=== PATIENT | male | born 1945 | race Caucasian/White ===

== ENCOUNTER 2024-09-30 10:51 | Inpatient (IN) ==
--- NOTE | 2024-09-30 11:45 | XRAY Report ---
PROCEDURE: XR Chest 1V INDICATIONS: sob TECHNIQUE: One view of the chest was acquired. COMPARISON: None. FINDINGS: Surgical changes and devices: None. Lungs and pleura: No pleural effusions or pneumothorax. No consolidation. Mediastinum: Mediastinal contours appear normal. Heart size is enlarged. Bones and chest wall: No suspicious bony lesions. Overlying soft tissues appear unremarkable. IMPRESSION: No acute pulmonary process. Reviewed by: Lorena Diaz MD on 09/30/2024 11:44 AM PDT Approved by: Lorena Diaz MD on 09/30/2024 11:44 AM PDT Station ID: [id number]
[2024-09-30 11:49] LABS: ALT ALANINE AMINOTRANSFERASE 42.0 IU/L (10-60); AST ASPARTATE AMINOTRANSFERASE 40.0 IU/L (10-42); BUN - BLOOD UREA NITROGEN 30.0 mg/dL (6-20); CARBON DIOXIDE - CO2 30.0 mmol/L (21-32); CREATININE 1.4 mg/dL (0.6-1.3); GFR - MDRD 49.0 (>89)
--- NOTE | 2024-09-30 12:33 | ED Physician Documentation ---
History of Present Illness Stated complaint Stated Complaint: SOA Chief complaint Chief Complaint: Resp History obtained from History obtained from: Patient History of Present Illness Timing: Prior to arrival Additonal information Additional information: Patient is a 79-year-old male presenting to the emergency department with increased shortness of breath going on for about 3 days now. Patient notes initially shortness of breath started while he was at rest but has progressively worsened. Patient has a past medical history remarkable for bilateral leg swel ling and recent wounds. He notes he was seen about a week ago by his primary care doctor after falling on his boat and believes he got multiple wounds from his fall on the boat causing significant swelling redness and warmth to bilateral lower legs. He was being treated with Lasix 80 mg and dicloxacillin and Keflex for bilateral leg wounds. He notes swelling in his legs has not improved he continues to have redness and drainage from bilateral wounds he has been unable to get into wound care and continues to have weeping from the wounds he denies any fevers or chills no chest pain associated with his symptoms he has orthopnea x 3 at home and difficulty breathing when laying flat. He had an echo about 3 weeks ago and chest x-ray showing small pleural effusions about 3 weeks ago as well. He notes this was when he was started and increased to Lasix 80 and his lisinopril was recently changed in the outpatietn setting. Meds/Allgy Home Medications Ambulatory Orders Medication Instructions Recorded Confirmed cholecalciferol (vitamin D3) 50 2,000 unit PO DAILY 09/30/24 mcg (2,000 unit) tablet (D3 DOTS) colchicine 0.6 mg capsule See Rx Instructions .Route . COMPLEX 09/30/24 09/30/24 dicloxacillin 500 mg capsule 500 mg PO QID 09/30/24 furosemide 40 mg tablet 40 mg PO DAILY 09/30/2409/12 hydrocodone 5 mg-acetaminophen 325 1 tab PO Q6H PRN pa in 09/30/24 09/30/24 mg tablet losartan 50 mg tablet 50 mg PO DAILY 09/30/2409/12 multivitamin (Daily Multi-Vitamin 1 tab PO DAILY 09/3009/30/24 tablet) potassium chloride 20 mEq 20 meq PO DAILY 09/30/24 tablet,extended release prednisone 50 mg tablet 50 mg PO DAILY 09/30/2409/12 sildenafil 100 mg tablet (Viagra) 100 mg PO DAILY PRN sexual activity 09/30/24 09/30/24 tizanidine 4 mg tablet 4 mg PO Q8H 09/30/24 5 Allergies Allergies Allergy/AdvReac Type Severity Reaction Status Date / Time Sulfa (Sulfonamide Allergy Mild Rash Verified 09/30/24 11:02 Antibiotics) PFSH Active Problems All Active Problems (Updated 09/30/24 @ 15:48 by Anusha Solorzano PA-C) History of acute heart failure (Acute) Cough (Acute) Weakness (Acute) Shortness of breath (Acute) Acute respiratory failure with hypoxia (Acute) Medical History Medical History (Updated 09/30/24 @ 15:48 by Anusha Solorzano PA-C) History of malaria History of osteoarthritis History of torn meniscus of knee History of atrial fibrillation Surgical History Surgical History (Updated 09/30/24 @ 11:05 by Sylvain Jones RN, BSN) History of blepharoplasty Social History Social History (Updated 09/30/24 @ 11:05 by Sylvain Jones RN, BSN) Smoking Status: Smoker current status unk If you are a former smoker, when did you quit? (Date/Year): 02/12/2001 Do you dip or chew tobacco?: No Do you vape?: No Living arrangement: At home Marital Status: Living Condition: Alone Physical Activity: Chairfast Level: Assisted Do you feel safe in your home environment?: Yes History of physical, verbal, emotional, or financial abuse?: No Frequency: Occasional Substance Use: denies use Exam Exam Vital Signs: Vital Signs x48h Temp Pulse Resp BP Pulse Ox O2 Flow Rate 09/30/24 12:57 117 H 28 H 150/69 H 96 3 09/30/24 10:54 36.6 C 127 H 18 137/54 H 98 3 Constitutional normal general appearance HENMT normocephalic Eyes PERRL, EOMs intact bilaterally and conjunctivae normal Neck/C-Spine visual inspection normal Respiratory breath sounds equal bilaterally, normal respiratory effort and clear to auscultation bilaterally Cardiovascular tachycardic, irrecgular on arrival. Gastrointestinal abdomen normal to inspection Old bruising noted to right upper quadrant. Extremities Significant swelling and redness noted to bilateral lower legs with weeping from wounds to both legs left greater than right. They are warm to touch with significant pain and edema extending above the knee. No signs of anasarca but he has diffuse swelling throughout lower legs. He has passive range of motion intact and significant tenderness to bilateral legs. Results Vitals Vitals: Oxygen O2 Source Nasal cannula Labs Labs: Microbiology 09/30/24 12:40 Wound Culture - Preliminary Leg - Left Pseudomonas Aeruginosa Laboratory Tests 09/30/24 09/30/24 09/30/24 11:28 11:30 12:44 WBC 10.7 RBC 4.15 L Hgb 13.8 L Hct 42.7 MCV 102.9 H MCH 33.3 H MCHC 32.3 RDW 13.0 Plt Count 149 MPV 10.1 Neut # (Auto) Not Reportable Lymph # (Auto) Not Reportable Door # (Auto) Not Reportable Eos # (Auto) Not Reportable Baso # (Auto) Not Reportable Absolute Nucleated RBC Not Reportable Total Counted 100 Band Neuts % (Manual) 25 H Reactive Lymphs % (Man) 1 Abnorm Lymph % (Manual) 0 Nucleated RBC % Not Reportable Neutrophils # (Manual) 10.3 H Lymphocytes # (Manual) 0.1 L Monocytes # (Manual) 0.3 Eosinophils # (Manual) 0.0 Basophils # (Manual) 0.0 Differential Comment MANUAL DIFFERENTIAL Platelet Estimate NORMAL (130-450,000) RBC Morph Micro Appear 2+ ANISOCYTOSIS Sodium 134 L Potassium 3.7 Chloride 97 L Carbon Dioxide 30 Anion Gap 7.0 BUN 30 H Creatinine 1.4 H Estimated GFR (MDRD) 49 L Glucose 177 H Lactic Acid 2.1 Calcium 8.9 Magnesium 1.7 Total Bilirubin 0.9 AST 40 ALT 42 Alkaline Phosphatase 100 B-Natriuretic Peptide 105 H Total Protein 5.9 L Albumin 3.2 Globulin 2.7 Albumin/Globulin Ratio 1.2 PD Medical Decision Making ED course Complexity details: reviewed old records and reviewed results ED course: Patient is a 79-year-old with shortness of breath presenting to the ED with increased leg swelling and increased shortness of breath despite taking Lasix for about 3 weeks 80 mg. He has increased swelling and wounds to his legs he is on dicloxacillin as well as Keflex with no relief in his outpatient send he has been unable to get into wound care recently. He has increased shortness of breath but no chest pain associated with his symptoms symptoms seem to worsen with laying flat he denies any dizziness or lightheadedness associate with his symptoms vitals here in the ED show patient is hypoxic on arrival and started on 3 L nasal cannula patient remains on nasal cannula oxygen while here in the ED. labs show no significant leukocytosis but he does have an HYUN as his baseline is closer to GFR of 60-70. I have concerns for acute dehydration as the chest x- ray is not showing any signs of fluid overload and his BNP is at 105 suspect his symptoms could be secondary to dehydration given recent Lasix versus possible PE as he remains persistently tacky to the 120s to 130s here in the ED. CXR: No acute pulmonary process. CT/PE: No central pulmonary embolus. Patient will be admitted for concerns for bilateral wound infections of the lower legs as well as requiring persistent 3 L nasal cannula which is new for patient. Discussed with Dr. Sorensen who is agreeable with this plan at this time. Patient understands and is agreeable with this plan. Discharge Plan Discharge Patient Disposition: [facility] DC/Xfer Condition: Good Clinical Impression: Shortness of breath, Weakness, Cough, History of acute heart failure Interventions: ED Admission Assessment Last Done: 09/30/24 16:49 Vitals documented within 30 minutes of discharge?: Yes
[2024-09-30 12:49] LABS: HCT - HEMATOCRIT 42.7 % (42.0-52.0); HGB - HEMOGLOBIN 13.8 g/dL (14.0-18.0); MEAN PLATELET VOLUME 10.1 fL (7.4-11.4); PLT - PLATELET COUNT 149 10^3/uL (130-450); RED CELL DISTRIBUTION WIDTH 13.0 % (12.0-15.0)
[2024-09-30 12:57] LABS: ABNORMAL LYMPHS % (MANUAL) 0 %; BASOPHILS # (MANUAL) 0.0 10^3/uL (0-0.1); EOSINOPHILS # (MANUAL) 0.0 10^3/uL (0-0.7); LYMPHOCYTES % (MANUAL) 0 %
[2024-09-30 13:43] LABS: BAND NEUTROPHILS % (MANUAL) 25 %; LYMPHOCYTES # (MANUAL) 0.1 10^3/uL (1.5-3.5); MONOCYTES # (MANUAL) 0.3 10^3/uL (0.0-1.0); NEUTROPHILS # (MANUAL) 10.3 10^3/uL (1.5-6.6); REACTIVE LYMPHS % (MANUAL) 1 %
[2024-09-30 13:44] LABS: PLATELET ESTIMATE, MANUAL NORMAL (130-450,000) (NORMAL); RBC MORPHOLOGY (MULTIPLE) 2+ ANISOCYTOSIS (NORMAL)
--- NOTE | 2024-09-30 15:03 | CT Report ---
PROCEDURE: CT Angio Chest INDICATIONS: concern for PE, tachycardic CONTRAST: OMNI 300 80ML TECHNIQUE: After the administration of intravenous contrast, 2 mm axial images were acquired from the pulmonary apices to the posterior costophrenic angles during the arterial phase. In addition, 1 mm lung kernel and 5 mm soft tissue kernel reconstructions were performed. 3-dimensional coronal oblique maximum intensity projection (MIP) reformats, 8 mm axial MIP, and 5 mm coronal and sagittal MPR reformats were then performed through the thorax. For radiation dose reduction, the following was used: automated exposure control, adjustment of mA and/or kV according to patient size. COMPARISON: None. FINDINGS: Image quality: Opacification is suboptimal for evaluation of vessels distal to the main pulmonary arteries. Large vessels: No filling defects within the opacified pulmonary arteries, accounting for motion and contrast timing. No evidence of acute aortic syndrome or aortic aneurysm. Lungs and pleura: No consolidation. No pleural effusions. No pneumothorax. No suspicious pulmonary nodules which require follow up. Mediastinum: Heart size is enlarged.. No pericardial effusion. No large vessel abnormality. No mediastinal adenopathy by size criteria. 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 Chest wall and lower neck: Thyroid is unremarkable. No axillary or supraclavicular adenopathy by size. Bones: No aggressive osseous abnormality. Upper Abdomen: Unremarkable. IMPRESSION: No central pulmonary embolus. Reviewed by: Lorena Diaz MD on 09/30/2024 3:01 PM PDT Approved by: Lorena Diaz MD on 09/30/2024 3:01 PM PDT Station ID: [id number]
[2024-09-30] MEDS: SODIUM CHLORIDE 0.9% 1,000 ML IV STA (15:30)
[2024-09-30] MEDS: MORPHINE 2 MG/ML CARPUJECT IVP STA (15:47)
[2024-09-30] MEDS: HYDROcod/ACETAM 5/325 MG TABLET PO STA (15:55)
[2024-09-30 16:39] LABS: GLUCOSE, URINE (UA) NEGATIVE (NEGATIVE); KETONES,URINE (UA) NEGATIVE (NEGATIVE); OCCULT BLOOD,URINE TRACE (NEGATIVE); SQUAMOUS EPITHELIAL CELL,UR MANY Squamous (<= Few)
[2024-09-30] MEDS ORDERED: ONDANSETRON ODT 4 MG TABLET TL PRN (16:53)
[2024-09-30] MEDS ORDERED: ONDANSETRON 4 MG/2 ML VIAL IVP PRN (16:53)
[2024-09-30] MEDS: ACETAMINOPHEN 325 MG TABLET PO PRN (17:10)
[2024-09-30] MEDS: oxyCODONE 5 MG TABLET PO PRN (17:10)
--- NOTE | 2024-09-30 17:33 | PHARMACY PROGRESS NOTE ---
Best Possible Medication History Admit Date and Time: 09/30/24 1547 Home Medications Medication Instructions Recorded Confirmed Type cholecalciferol (vitamin D3) 50 2,000 unit PO DAILY 09/30/24 History mcg (2,000 unit) tablet (D3 DOTS) colchicine 0.6 mg capsule See Rx Instructions .Route . COMPLEX 09/30/24 09/30/24 History dicloxacillin 500 mg capsule 500 mg PO QID 09/30/24 History furosemide 40 mg tablet 40 mg PO DAILY 09/30/2409/12 History hydrocodone 5 mg-acetaminophen 325 1 tab PO Q6H PRN pa in 09/30/24 09/30/24 History mg tablet losartan 50 mg tablet 50 mg PO DAILY 09/30/2409/12 History multivitamin (Daily Multi-Vitamin 1 tab PO DAILY 09/3009/30/24 History tablet) potassium chloride 20 mEq 20 meq PO DAILY 09/30/24 History tablet,extended release prednisone 50 mg tablet 50 mg PO DAILY 09/30/2409/12 History sildenafil 100 mg tablet (Viagra) 100 mg PO DAILY PRN sexual activity 09/30/24 09/30/24 History tizanidine 4 mg tablet 4 mg PO Q8H 09/30/24 5 History Processed by: Pharmacy Medications reviewed in ED?: Yes Medication History completed: Yes Patient Interview: Completed Secondary Source(s): Prescription bottles, Other family member and Insurance records [facility] Statement: As the person ultimately responsible for medication therapy, providers are able to order a medication from an existing home medication list in [facility] via the "Reconcile Routine" prior to Confirmation of that medication by it desktop support technician. Such practice is discouraged except when the physician, in their clinical judgment, deems that a medical need exists for a medication without regard to previous use.
[2024-09-30] MEDS: SODIUM CHLORIDE 0.9% 1,000 ML IV SCH (17:54)
[2024-09-30] MEDS: SODIUM CHLORIDE FLUSH 0.9% 10 ML SYRINGE IVP SCH (17:56)
[2024-09-30] MEDS: DICLOFENAC SODIUM 1% GEL 50 GM TUBE TOP PRN (22:57)
[2024-10-01 05:47] LABS: HCT - HEMATOCRIT 39.7 % (42.0-52.0); HGB - HEMOGLOBIN 13.2 g/dL (14.0-18.0); MEAN PLATELET VOLUME 10.4 fL (7.4-11.4); PLT - PLATELET COUNT 136 10^3/uL (130-450); RED CELL DISTRIBUTION WIDTH 13.2 % (12.0-15.0)
[2024-10-01 06:02] LABS: ABNORMAL LYMPHS % (MANUAL) 0 %; BASOPHILS # (MANUAL) 0.0 10^3/uL (0-0.1); EOSINOPHILS # (MANUAL) 0.0 10^3/uL (0-0.7)
[2024-10-01 06:03] LABS: BUN - BLOOD UREA NITROGEN 35.0 mg/dL (6-20); CARBON DIOXIDE - CO2 28.0 mmol/L (21-32); CREATININE 1.8 mg/dL (0.6-1.3); GFR - MDRD 37.0 (>89)
[2024-10-01 06:27] LABS: BAND NEUTROPHILS % (MANUAL) 25 %; LYMPHOCYTES # (MANUAL) 1.1 10^3/uL (1.5-3.5); LYMPHOCYTES % (MANUAL) 6 %; MONOCYTES # (MANUAL) 0.1 10^3/uL (0.0-1.0); NEUTROPHILS # (MANUAL) 12.8 10^3/uL (1.5-6.6); PLATELET ESTIMATE, MANUAL NORMAL (130-450,000) (NORMAL); PLATELET MORPHOLOGY NORMAL APPEARANCE (NORMAL); RBC MORPHOLOGY (MULTIPLE) NORMAL APPEARANCE (NORMAL); REACTIVE LYMPHS % (MANUAL) 2 %
[2024-10-01] MEDS: ENOXAPARIN 40 MG/0.4 ML SYRINGE SUBQ SCH (09:20)
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
--- NOTE | 2024-10-01 21:30 | PROVIDER PROGRESS NOTE ---
Subjective Prog Note Date Prog Note Date: 10/01/24 Prog Note Time: 21:21 Subjective Pt reports feeling: Improved Subjective: He states that his panic was so severe last night. He received 1 dose of Ativan from [employer]. Hydroxyzine. And that helped quite a bit. He would like me to order those. Initially he asked for Ativan and says that he takes it at home. But when I queried that statement due to lack of verification and the prescription monitoring program, he tells me that he took it years and years ago. He does not have it at home. But he knows that it worked in the past. His legs are still on fire. Pain is a 7 out of a 10. Sometimes an 8 out of a 10. I had thought that I had ordered his Ancef last night and I did not. So I need to order it this morning. He required oxygen once he got to MedSurg last night. Needed until about 530. Between 5:30 PM and this morning, he is on room air. His respiratory rate peaked at 30 when he got to MedSurg. This morning he was 22-24. This afternoon 26. He has remained afebrile. Daughter is at the bedside today. She has been very helpful and being very supportive of her father. Current Medications Current Medications Current Medications: Current Medications Generic Name Dose Route Start Last Admin Trade Name Freq PRN Reason Stop Dose Admin Acetaminophen 650 mg 09/30/24 16:53 10/01/24 21:15 Acetaminophen 325 Mg Tablet PO 650 mg Q4HR PRN Administration Pain 1 to 4, or Fever Cefazolin Sodium 2 gm 10/01/24 15:00 10/01/24 15:54 Cefazolin 2 Gm Vial IVP 2 gm Q8H TOMAS Administration Diclofenac Sodium 2 gm 09/30/24 22:09 09/30/24 22:57 Diclofenac Sodium 1% Gel 50 Gm Tube TOP 2 gm QID PRN Administration Mild Pain (Level 1-3) Enoxaparin Sodium 40 mg 10/01/24 09:00 10/01/24 09:20 Enoxaparin 40 Mg/0.4 Ml Syringe SUBQ 40 mg DAILY TOMAS Administration Hydroxyzine Pamoate 25 mg 09/30/24 22:13 10/01/24 21:15 Hydroxyzine Pamoate 25 Mg Capsule PO 25 mg QPM PRN Administration Insomnia Hydroxyzine Pamoate 25 mg 10/01/24 10:36 10/01/24 14:09 Hydroxyzine Pamoate 25 Mg Capsule PO 25 mg TID PRN Administration Anxiety Sodium Chloride 1,000 mls @ 100 mls/hr 09/30/24 16:53 10/01/24 14:03 Normal Saline 0.9% IV 100 mls/hr .Q10H TOMAS Administration Lorazepam 0.5 mg 10/01/24 10:36 Lorazepam 2 Mg/Ml Vial IVP TID PRN Anxiety Ondansetron HCl 4 mg 09/30/24 16:53 Ondansetron Odt 4 Mg Tablet TL Q6HR PRN Nausea / Vomiting Ondansetron HCl 4 mg 09/30/24 16:53 Ondansetron 4 Mg/2 Ml Vial IVP Q6HR PRN Nausea / Vomiting Oxycodone HCl 5 mg 09/30/24 16:53 10/01/24 21:15 Oxycodone 5 Mg Tablet PO 5 mg Q4HR PRN Administration Pain 5 to 7 Sodium Chloride 10 ml 09/30/24 16:53 Sodium Chloride Flush 0.9% 10 Ml Syringe IVP PRN PRN NEEDED PER PROVIDER ORDERS Sodium Chloride 10 ml 09/30/24 17:00 10/01/24 15:55 Sodium Chloride Flush 0.9% 10 Ml Syringe IVP 10 ml 0100,0900,1700 TOMAS Administration Objective Vital Signs/Intake & Output Reviewed Vital Signs: Yes Vital Signs: Vital Signs x48h Temp Pulse Resp BP Pulse Ox 10/01/24 15:43 36.5 C 86 22 147/91 H 95 Intake & Output: Intake & Output 09/28/24 09/29/24 09/30/24 10/01/24 23:59 23:59 23:59 23:59 Intake Total 1520 / 1520 3070 / 3070 Output Total 200 / 200 375 / 375 Balance 1320 / 1320 2695 / 2695 Weight (kg) 137 kg Objective General Appearance: positive Alert and Mild distress (From his bilateral leg pain. His panic is much better today so his shortness of breath is improved.) ENT: positive No signs of dehydration Neck: positive Other (Neck is too obese to assess for JVD); negative Stiff neck Respiratory: positive Chest non-tender and No respiratory distress; negative Breath sounds nml (Diffusely diminished but no tachypnea, no crackles or rhonchi. Barrel chest.) Cardiovascular: positive Regular rate & rhythm (Stretches of regular rate and rhythm alternated with irregularly irregular. Telemetry has sinus on some beats, and multiple, multiple ectopic beats.) and Irregularly irregular Abdomen: positive Non-tender, Nml bowel sounds and Other (Unable to assess for organomegaly due to the large obese pannus) Skin: positive Other (The redness of his legs is still as intense as last night. Same cracked skin, same clear serous oozing) Extremities: positive Other (Severe lymphedema but you can see you with the legs are starting to shrink. Both he and his family feel that they have improved in their edema but they are still quite angry looking with the redness, tenseness, cracked skin and oozing.) Neurologic/Psychiatric: positive Oriented x3, CN's nml (2-12), Motor nml and Mood/affect nml Lab Results 10/01/24 05:12 10/01/24 05:12 Other Labs: Lab Results x24hrs 10/01/24 Range/Units 05:12 WBC 14.1 H (4.8-10.8) x10^3/uL RBC 3.85 L (4.70-6.10) 10^6/uL Hgb 13.2 L (14.0-18.0) g/dL Hct 39.7 L (42.0-52.0) % MCV 103.1 H (80.0-94.0) fL MCH 34.3 H (27.0-31.0) pg MCHC 33.2 (32.0-36.0) g/dL RDW 13.2 (12.0-15.0) % Plt Count 136 (130-450) 10^3/uL MPV 10.4 (7.4-11.4) fL Neut # (Auto) Not Reportable Lymph # (Auto) Not Reportable Webb # (Auto) Not Reportable Eos # (Auto) Not Reportable Baso # (Auto) Not Reportable Absolute Nucleated RBC Not Reportable Total Counted 100 Band Neuts % (Manual) 25 H (0 - 10) % Reactive Lymphs % (Man) 2 % Abnorm Lymph % (Manual) 0 % Nucleated RBC % Not Reportable Neutrophils # (Manual) 12.8 H (1.5-6.6) 10^3/uL Lymphocytes # (Manual) 1.1 L (1.5-3.5) 10^3/uL Monocytes # (Manual) 0.1 (0.0-1.0) 10^3/uL Eosinophils # (Manual) 0.0 (0-0.7) 10^3/uL Basophils # (Manual) 0.0 (0-0.1) 10^3/uL Differential Comment MANUAL DIFFERENTIAL Platelet Estimate NORMAL (130-450,000) (NORMAL) Platelet Morphology NORMAL APPEARANCE (NORMAL) RBC Morph Micro Appear NORMAL APPEARANCE (NORMAL) Sodium 134 L (135-145) mmol/L Potassium 4.4 (3.5-4.5) mmol/L Chloride 98 L (101-111) mmol/L Carbon Dioxide 28 (21-32) mmol/L Anion Gap 8.0 (6-13) BUN 35 H (6-20) mg/dL Creatinine 1.8 H (0.6-1.3) mg/dL Estimated GFR (MDRD) 37 L (>89) Glucose 116 H (74-104) mg/dL Calcium 8.3 L (8.5-10.3) mg/dL B-Natriuretic Peptide 258 H (5-100) pg/mL ABX Reporting Has patient been on IV antibiotics over the past 48 hours?: No Assessment/Plan Problem List (1) Acute respiratory failure with hypoxia: Impression: Resolved. He has been on room air and much more comfortable. Still has episodes of tachypnea and feeling like he is suffocating. Those episodes are improved with the Vistaril and sparing use of opioids. Even though he asked for Ativan he has not requested it today after I will order it. 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 Echo ordered for tomorrow since tech is not here today. And I need to track down the echo that was done 3 weeks ago. Because of his leg infection I am changing him from observation status to inpatient status (2) Cellulitis and abscess of leg: Impression: Due to lymphedema that has cracked and disrupted his skin. I Started him on Ancef. However culture of the leg from yesterday is now growing Pseudomonas. I am awaiting sensitivities. White cell count has come up to 14 from 10 yesterday. Although his legs have improved in itheir girth and edema, it still red, hot, tense, If sensitives do not appear by tomorrow, I am changing him to gram-negative coverage. I will also venous Doppler to assess soft tissue or for DVT. I will ask the wound clinic staff if they have any time in their schedule to see this christie man. (3) Generalized anxiety disorder: Impression: I have ordered the Vistaril, Ativan. Both as needed. He is willing to try an SSRI. And I am going to order escitalopram (4) Atrial ectopy: Impression: Telemetry strips show probable atrial fibrillation. Less and less P waves visible than yesterday to today. Check TSH, and echocardiogram tomorrow. CT angiogram already done and there is no PE. (5) Macrocytosis: Impression: He states that his alcohol use is 2-3 vodka drinks at a time. But only about 2 or 3 times a week. I will check B12, folate and TSH. I will also contact his PCP, Dr. Дмитрий Burgos, and see if he has any old labs that I may be able to review since there are none in our EMR.
--- NOTE | 2024-10-01 22:26 | Ultrasound Report ---
PROCEDURE: US Venous Duplex BL INDICATIONS: Anusha Solorzano PA-C TECHNIQUE: Real-time imaging, as well as color and pulse Doppler interrogation, were performed of the deep veins of both legs from the inguinal ligament to the popliteal fossa. Attempted visualization of the calf veins was performed. COMPARISON: None FINDINGS: The deep veins are normally compressible, and free of intraluminal thrombus. Color and pulse Doppler demonstrate normal phasic intravascular flow. There is normal augmentation response to distal compression maneuver. Bilateral popliteal cysts are seen measures up to 5.3 x 0.9 x 6.6 cm in size on the right side and up to 5.3 x 1.1 x 5.2 cm in size on the left side. Bilateral joint effusion is also seen. IMPRESSION: No deep venous thrombosis of the visualized lower extremities. Bilateral popliteal cysts as above and small to moderate bilateral joint effusion. Reviewed by: Geovanny Luevano MD on 10/01/2024 10:25 PM PDT Approved by: Geovanny Luevano MD on 10/01/2024 10:25 PM PDT Station ID: [id number]
[2024-10-02 06:09] LABS: HCT - HEMATOCRIT 40.8 % (42.0-52.0); HGB - HEMOGLOBIN 13.2 g/dL (14.0-18.0); MEAN PLATELET VOLUME 10.8 fL (7.4-11.4); PLT - PLATELET COUNT 160 10^3/uL (130-450); RED CELL DISTRIBUTION WIDTH 13.2 % (12.0-15.0)
[2024-10-02 06:18] LABS: ABNORMAL LYMPHS % (MANUAL) 0 %; BASOPHILS # (MANUAL) 0.0 10^3/uL (0-0.1); EOSINOPHILS # (MANUAL) 0.0 10^3/uL (0-0.7)
[2024-10-02 06:29] LABS: BUN - BLOOD UREA NITROGEN 40.0 mg/dL (6-20); CARBON DIOXIDE - CO2 23.0 mmol/L (21-32); CREATININE 1.7 mg/dL (0.6-1.3); GFR - MDRD 39.0 (>89)
[2024-10-02 06:34] LABS: BAND NEUTROPHILS % (MANUAL) 23 %; LYMPHOCYTES # (MANUAL) 0.4 10^3/uL (1.5-3.5); LYMPHOCYTES % (MANUAL) 3 %; MONOCYTES # (MANUAL) 0.3 10^3/uL (0.0-1.0); NEUTROPHILS # (MANUAL) 13.7 10^3/uL (1.5-6.6); PLATELET ESTIMATE, MANUAL NORMAL (130-450,000) (NORMAL); RBC MORPHOLOGY (MULTIPLE) NORMAL APPEARANCE (NORMAL); WBC MORPHOLOGY (MULTIPLE) NORMAL APPEARANCE (NORMAL)
[2024-10-02] MEDS: ESCITALOPRAM 10 MG TABLET PO SCH (08:13)
[2024-10-02] MEDS: PRENATAL VITAMIN TABLET PO SCH (08:13)
[2024-10-02] MEDS: THIAMINE 100 MG TABLET PO SCH (08:13)
[2024-10-02] MEDS: LORazepam 2 MG/ML VIAL IVP PRN ×2 (09:26→21:21)
[2024-10-02] MEDS: PIPERACILLIN/TAZOBACTAM 3.375 GM in SODIUM CHLORIDE 0.9% MINIBAG 100 ML IV ONE (12:29)
--- NOTE | 2024-10-02 12:51 | WOUND CARE CONSULTATION ---
Referring Provider Name of Referring Provider:: Dr. Delmis Sorensen Consult Date: 10/02/24 CC & HPI Chief Complaint Chief Complaint: Severe edema bilateral lower extremities with cellulitis. SOB. History Obtained From Records Reviewed: EMR, pt and pt's close friend. History of Present Illness HPI: Increased edema to bilateral lower extremities with onset of small ulcerations and weeping. Pt seen in ER with shortness of breath; evaluated and admitted to Med/Surg under the care of Dr Soernsen. Meds/Allgy Home Medications Ambulatory Orders Medication Instructions Recorded Confirmed cholecalciferol (vitamin D3) 50 2,000 unit PO DAILY 09/30/24 mcg (2,000 unit) tablet (D3 DOTS) colchicine 0.6 mg capsule See Rx Instructions .Route . COMPLEX 09/30/24 09/30/24 dicloxacillin 500 mg capsule 500 mg PO QID 09/30/24 furosemide 40 mg tablet 40 mg PO DAILY 09/30/2409/12 hydrocodone 5 mg-acetaminophen 325 1 tab PO Q6H PRN pa in 09/30/24 09/30/24 mg tablet losartan 50 mg tablet 50 mg PO DAILY 09/30/2409/12 multivitamin (Daily Multi-Vitamin 1 tab PO DAILY 09/3009/30/24 tablet) potassium chloride 20 mEq 20 meq PO DAILY 09/30/24 tablet,extended release prednisone 50 mg tablet 50 mg PO DAILY 09/30/2409/12 sildenafil 100 mg tablet (Viagra) 100 mg PO DAILY PRN sexual activity 09/30/24 09/30/24 tizanidine 4 mg tablet 4 mg PO Q8H 09/30/24 5 Allergies Allergies Allergy/AdvReac Type Severity Reaction Status Date / Time Sulfa (Sulfonamide Allergy Mild Rash Verified 09/30/24 11:02 Antibiotics) PFSH Active Problems All Active Problems (Updated 10/02/24 @ 12:42 by YISEL Garcia) Lymphedema (Acute) Macrocytosis (Acute) Atrial ectopy (Acute) Cellulitis and abscess of leg (Acute) History of acute heart failure (Acute) Cough (Acute) Weakness (Acute) Shortness of breath (Acute) Acute respiratory failure with hypoxia (Acute) Medical History Medical History (Updated 10/02/24 @ 12:42 by YISEL Garcia) Low testosterone replacement therapy started 2023 Chronic back pain Deafness Squamous cell carcinoma, face Mohs 2023 Hyperlipidemia Glucose intolerance A1c 5.5% for yrs and most recent one 6.2% Hypertension Generalized anxiety disorder Super obesity History of malaria History of osteoarthritis History of torn meniscus of knee History of atrial fibrillation Surgical History Surgical History (Updated 10/01/24 @ 20:44 by Delmis Sorensen MD) H/O inguinal hernia repair bilateral History of facelift severe cystic acne left keloids of face and underwent removal age 30 History of blepharoplasty Family History Family History (Updated 10/01/24 @ 20:52 by Delmis Sorensen MD) Father No problems noted. Mother Alzheimers disease Brother Hepatitis C Brother Arthritis Pulmonary embolus Sister Anxiety Arthritis Son Alcohol abuse Hyperlipidemia Daughter Endometrial cancer Autoimmune disease Social History Social History (Updated 10/01/24 @ 20:56 by Delmis Sorensen MD) Smoking Status: Former smoker If you are a former smoker, when did you quit? (Date/Year): 02/12/2001 Number of Years Smoked: 40 How many cigarettes a day do you smoke? (20 cigarettes=1 Pk): 20 Second hand tobacco smoke exposure: Yes Do you dip or chew tobacco?: No Do you vape?: No Living arrangement: At home Marital Status: Living Condition: Alone Support Person: Yes Relationship Notes: placed in memory care unit February 2024. Daughter and son are his DPOA. Daughter lives nearby. Has a Durable Power of Childcare Aide for Health Care?: Yes Name / Relationship: Genoveva/daughter; son in [place] DPOA on file?: Yes Has Health Care Directive?: No Health Care Directive on file?: No Physical Activity: Chairfast Level: Assisted Do you feel safe in your home environment?: Yes History of physical, verbal, emotional, or financial abuse?: No Frequency: Occasional Number of drinks/day: 3 Number of days/week: 3 ETOH - Additional Notes: Vodka Substance Use: denies use Expanded Wound Exam Vital Signs Vital Signs: Vital Signs Temperature 37.0 C 10/02/24 08:10 Pulse Rate 119 H 10/02/24 08:10 Respiratory Rate 26 H 10/02/24 08:10 Blood Pressure 165/96 H 10/02/24 08:10 O2 Saturation 93 10/02/24 08:10 If not protocol: Oxygen Flow, liters/minute 3 09/30/24 17:18 Exam Exam Vital Signs: Vital Signs x48h Temp Pulse Resp BP Pulse Ox 10/02/24 08:10 37.0 C 119 H 26 H 165/96 H 93 Constitutional Older adult, morbidly obese, sitting in recliner chair at the bedside. Pt is sleeping restlessly, stertorous breathing, intermittently waking. Pt was easily awoken to introduce myself to him, but dozed off repeatedly during my questions. Pt has a close friend who is with him in the room while his daughter is away from the bedside. Pt's friend is Bibiana, a retired medical management trainer who work ed with the pt during his career here on [facility] as a PA. She is very knowledgeable about his hx and assisted in answering my questions and providing information of how they have been treating the legs at home. Extremities Bilateral lower extremities- significant edema present bilaterally. Large amt serous exudate noted to the blue chux underneath the pt's leg on the recliner. Scattered ulcerations noted to both legs. Most significant area located to the L lateral calf where dark purple discoloration has occurred. Small opening present to the central area. Suspect pt has areas of generalized weeping to the posterior calf areas as well; unable to visualize the entire posterior calf while pt sitting in the recliner chair. Increased warmth palpable to the gaiter area, positive for moderately intense erythema. No odor present to the legs or the blue chux. Edema most pronounced to the calf/feet area but does extend up into the thigh area. Pt is negative for Stemmer's sign but appearance and hx is indicative of early lymphedema to bilateral lower extremities. Acquired measurements of the lower extremities to allow for tracking of the edema. 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 Plan Plan: Will have floor RN initiate the following interventions. Will have the leg gently cleansed and dried. Application of moisturizer to the legs and feet to help keep skin more pliable and flexible. Gentamicin ointment to open or weeping areas, oil emulsion gauze, ABD pads as needed for absorption. Secure with rolled gauze, 4 inch, using at least 2 rolls per leg. Secure drsg/gauze with 4 inch Vincent wraps, using 2 or 3 per leg. Vincent wraps should be applied with mild compression to avoid removing too much fluid, too fast and causing fluid overload. This will be a daily or twice daily drsg change if drsgs become saturated. Pt needs evaluation and tx by lymphedema therapist for the best fdc control. [facility] is the closest lymphedema therapist [place]. Unfortunately, it can take approx 1-2 months for a new pt consult. Wound clinic here at [facility] will be happy to see the pt in the interim if hospitalists agree and generate consult. Will be happy to follow up while pt is in pt status upon hospitalist request. Results Lab Results: Laboratory Results Sodium 134 mmol/L (135-145) L 10/02/24 05:15 Potassium 4.5 mmol/L (3.5-4.5) 10/02/24 05:15 Chloride 100 mmol/L (101-111) L 10/02/24 05:15 Carbon Dioxide 23 mmol/L (21-32) 10/02/24 05:15 Anion Gap 11.0 (6-13) 10/02/24 05:15 BUN 40 mg/dL (6-20) H 10/02/24 05:15 Creatinine 1.7 mg/dL (0.6-1.3) H 10/02/24 05:15 Glucose 134 mg/dL (74-104) H 10/02/24 05:15 Calcium 8.2 mg/dL (8.5-10.3) L 10/02/24 05:15 Total Bilirubin 0.9 mg/dL (0.2-1.0) 09/30/24 11:28 AST 40 IU/L (10-42) 09/30/24 11:28 ALT 42 IU/L (10-60) 09/30/24 11:28 Alkaline Phosphatase 100 IU/L (42-121) 09/30/24 11:28 Total Protein 5.9 g/dL (6.4-8.9) L 09/30/24 11:28 Albumin 3.2 g/dL (3.2-5.5) 09/30/24 11:28 Globulin 2.7 g/dL (2.1-4.2) 09/30/24 11:28 Albumin/Globulin Ratio 1.2 (1.0-2.2) 09/30/24 11:28 09/30/24 12:40 Leg - Left Wound Culture - Final Pseudomonas Aeruginosa Enterococcus Faecalis.
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
[2024-10-02] MEDS: PIPERACILLIN/TAZOBACTAM 3.375 GM in SODIUM CHLORIDE 0.9% MINIBAG 100 ML IV SCH (15:14)
[2024-10-02] MEDS ORDERED: ALBUTEROL NEB 2.5 MG/3 ML INH PRN (19:53)
[2024-10-02] MEDS: FUROSEMIDE 20 MG/2 ML VIAL IVP ONE (20:21)
[2024-10-02 20:25] LABS: ABG PCO2 38 mmHg (34-45); ABG PH 7.42 (7.35-7.45)
[2024-10-02 20:26] LABS: ABG BASE EXCESS 0.3 mmol/L (-2.0-3.0); ABG FRACTION OF INSPIRED O2 21.00; ABG HCO3 24.9 mmol/L (22.0-26.0); ABG OXYGEN SATURATION 95 % (95-98); ABG PO2 80 mmHg (83-108); ABG TCO2 26.1 mmol/L (21.0-29.0)
--- NOTE | 2024-10-02 21:11 | XRAY Report ---
PROCEDURE: XR Chest 1V INDICATIONS: tachypnea TECHNIQUE: One view of the chest was acquired. COMPARISON: 09/30/2024. FINDINGS: Surgical changes and devices: None. Lungs and pleura: No pleural effusions or pneumothorax. There is mild pulmonary vascular congestion. No definite focal infiltrate. Mediastinum: Mediastinal contours appear normal. Heart size is enlarged. Bones and chest wall: No suspicious bony lesions. Overlying soft tissues appear unremarkable. IMPRESSION: Finding is suggestive of CHF. No definite focal infiltrate. No pleural effusion or pneumothorax. Reviewed by: Geovanny Luevano MD on 10/02/2024 9:09 PM PDT Approved by: Geovanny Luevano MD on 10/02/2024 9:09 PM PDT Station ID: [id number]
[2024-10-02] MEDS: SODIUM CHLORIDE FLUSH 0.9% 10 ML SYRINGE IVP PRN (21:21)
[2024-10-02] MEDS ORDERED: SUCCINYLCHOLINE 200 MG/10 ML VIAL ONE (21:51)
[2024-10-02] MEDS ORDERED: MIDAZOLAM 2 MG/2 ML VIAL ONE (21:51)
[2024-10-02] MEDS ORDERED: ROCURONIUM 50 MG/5 ML VIAL ONE ×2 (21:51→22:31)
[2024-10-02] MEDS ORDERED: PROPOFOL 200 MG/20 ML VIAL IVP ONE ×2 (21:52→22:31)
[2024-10-02] MEDS: MORPHINE 2 MG/ML CARPUJECT IVP PRN (22:27)
[2024-10-02] MEDS: PROPOFOL 1000 MG/100 ML 1,000 MG/100 ML BOTTLE IV SCH (23:08)
--- NOTE | 2024-10-02 23:10 | PROVIDER PROGRESS NOTE ---
Progress Note Progress Note Progress Note: This patient had acute worsening of his tachypnea became mildly hypoxic and was obtunded. It was clear that with his tachypnea to a rate of the mid 30s his respiratory drive was going to give out eventually. He had received multiple doses of Ativan and morphine. I ordered a chest x-ray which showed pulmonary vascular congestion and an enlarged cardiac shadow. His heart rate was hovering around 100 at the time and he had a regular rhythm. He was placed on BiPAP and did well for about an hour but then had additional recurrence of his tachypnea and anxiety. He was given morphine and Ativan without relief of his symptomatology. He remained obtunded. At that point I had of goals of care discussion with his daughter Genoveva. I offered intubation as a chance to support his respiratory status and promote diuresis. He is about 5-1/2 L fluid positive for the admission and his chest x- ray clearly showed vascular congestion. His ABG was not particularly concerning. pH 7.42, pCO2 38, pO2 80, HCO3 24.9. However, his clinical status was very worrisome We discussed that there was no guarantee that he would improve to the point that he could get off the ventilator but that without intubation he would most likely have increasing respiratory failure. His daughter agreed to a short course of intubation. Anesthesia was called the patient was intubated and placed on a propofol drip. He appeared more comfortable. Right IJ central line was also inserted by anesthesia and OG tube was placed. Chest x-ray was done post procedurally and all lines appear to be in good position by initial wet read at the bedside. This patient has a degree of critical illness that is threatening one or more vital organ systems. There is a probability of life threatening deterioration of his condition. I spent 60 minutes of critical care time with this patient to day. This included coordination of care, review and ordering of lab work, adjusting medications.
[2024-10-02] MEDS: tiZANidine 4 MG TABLET PO SCH (23:14)
--- NOTE | 2024-10-02 23:14 | ANESTHESIA PROCEDURE NOTE ---
Anesth Central Line Template Central Line Procedure Date: 10/02/24 Central Line Preparation: Consent Obtained, Time out completed, Ultrasound used and Sterile prep and drape Central line location: Right IJ Central line type: Triple lumen Central line catheter tip site resides: Superior vena cava (SVC) Central line aftercare: Chlorhexidine disc placed, Secured, Placement confirmed, No pneumothorax, No complications, Bundle checklist complete and Pt tolerated well Other Info/Details: Cath sutured at 18cm. Caps easily aspirate and flush x3.
--- NOTE | 2024-10-02 23:17 | ANESTHESIA PROCEDURE NOTE ---
Anesthesia Intubation Template Intubation Blade: positive Glidescope Tube: Size-enter number (8.0) and Cuffed Route: Oral Placement Confirmation: End tidal CO2, Direct visualization, Bilateral breath sounds and Other (PCXR) Complications: No complications (2mg Versed,150mg Propofol, 150mg Succs, 50mg Rocuronium with propofol gtt started (after placement for CVL)View 3 with Glidescope 4. Secured at 23cm, teeth. VSS)
--- NOTE | 2024-10-02 23:19 | XRAY Report ---
PROCEDURE: XR Chest 1V INDICATIONS: ET tube placement TECHNIQUE: One view of the chest was acquired. COMPARISON: Earlier study from the same day.. FINDINGS: Surgical changes and devices: Right-sided central venous catheter tip is in SVC. ET tube tip is approximately 1.7 cm above the ford. NG tube tip is below the lower edge of the study and is in the expected location of stomach lumen.. Lungs and pleura: There is suggestion of small to moderate left pleural effusion with left lower lobe infiltrate/atelectasis. Pulmonary vascular congestion is seen. No gross pneumothorax. Mediastinum: Mediastinal contours appear normal. Heart size is enlarged. Bones and chest wall: No suspicious bony lesions. Overlying soft tissues appear unremarkable. IMPRESSION: 1. Tube and line positions as above. 2. Pulmonary vascular congestion and moderate-sized left-sided pleural effusion with left basilar infiltrate/atelectasis. No pneumothorax. Reviewed by: Geovanny Echavarria MD on 10/02/2024 11:18 PM PDT Approved by: Geovanny Echavarria MD on 10/02/2024 11:18 PM PDT Station ID: [id number]
[2024-10-02 23:31] LABS: ABG BASE EXCESS 0.7 mmol/L (-2.0-3.0); ABG HCO3 25.7 mmol/L (22.0-26.0); ABG OXYGEN SATURATION 100 % (95-98); ABG PCO2 41 mmHg (34-45); ABG PH 7.41 (7.35-7.45); ABG PO2 386 mmHg (83-108); ABG TCO2 26.9 mmol/L (21.0-29.0)
[2024-10-02 23:34] LABS: ABG MODE OF VENTILATION ASSIST/CONTROL
[2024-10-02 23:35] LABS: ABG FRACTION OF INSPIRED O2 100.00
--- NOTE | 2024-10-03 01:28 | ECHO Report ---
Version: 1 Study ID: [id number] [id number] Adult Echocardiogram Report Name: CORNELL ZAPIEN Study Date: 10/02/2024, 8: 52 AM BP: 151 / 52 mmHg [place] [facility] [place] HR: 115 bpm : 1945 (MM/DD/YYYY) Gender: Male Height: 69 in Age: 79 Years Weight: 302.033 lb BSA: 2.46 m² Reason For Study: tia History: Acute respiratory failure with hypoxia, tachypnea, lower extremity cellulitis Technically difficult study due to body habitus and lung interference. Repeat limited w/ Definity for better evaluation of LV function recommended when / if rate controlled Interpretation Summary There is mild concentric increase in the wall thickness of the left ventricle. Global left ventricular systolic function is severely decreased. The visual left ventricular ejection fraction is estimated at less than 20%. A repeat limited study with echocardiographic (microbubble) enhancement agent (contrast) may be indicated. The right ventricle is mildly dilated. The aorta at the level of the sinuses of Valsalva is mildly dilated. The aorta at the sinus of Valsalva measures 4.3cm. Left Ventricle: There is mild concentric increase in the wall thickness of the left ventricle. A repeat limited study with echocardiographic (microbubble) enhancement agent (contrast) may be indicated. The left ventricular apex is not well visualized. Global left ventricular systolic function is severely decreased. The visual left ventricular ejection fraction is estimated at less than 20%. Diastolic function could not be accurately assessed due to irregular rhythm. Right Ventricle: The right ventricle is mildly dilated. The right ventricular systolic function is normal. Aortic Valve: The aortic valve is not well visualized. AR present but unable to quanitify due to limited acoustic windows. Mitral Valve: The mitral valve is not well visualized. No evidence of mitral stenosis is seen. Tricuspid Valve: The tricuspid valve is structurally normal. Trace tricuspid regurgitation present. TR may be underestimated due to elevated HR. Pulmonic Valve: The pulmonic valve is visually normal in structure and function. Mild pulmonic valvular regurgitation is present. Left Atrium: The left atrium is not well visualized. Right Atrium: Right atrium not well visualized. The inferior vena cava is mildly dilated with mildly decreased collapse with sniff (estimated right atrial pressure 10-15mmHg). Atrial Septum: The interatrial septum is not well seen. Interatrial shunt cannot be excluded. Aorta: The aorta at the level of the sinuses of Valsalva is mildly dilated. The aorta at the sinus of Valsalva measures 4.3cm. Pulmonary Artery: Pulmonary artery systolic pressure could not be estimated due to an insufficient tricuspid regurgitant jet. Pericardium/Pleural Space: There is no pericardial effusion. A prominent fat pad is present. Left Ventricle IVSd: 1.17 cm LVIDd: 4.9 cm LVPWd: 1.29 cm LVIDs: 4.2 cm Right Ventricle TAPSE: 1.98 cm Aortic Valve LV V1 mean P.36 mmHg LV V1 mean: 69.9 cm/sec LV V1 VTI: 13.8 cm LV V1 max: 103.2 cm/sec LV V1 max P.4 mmHg Aorta Ao root diam: 4.3 cm MMode/2D Measurements & Calculations Ao root diam: 4.3 cm BMI: 44.6 kilograms/m² BSA([facility]): 2.7 m² IVSd: 1.17 cm LVIDd: 4.9 cm LVIDs: 4.2 cm LVPWd: 1.29 cm TAPSE: 1.98 cm Doppler Measurements & Calculations LV V1 max: 103.2 cm/sec LV V1 max P.4 mmHg LV V1 mean: 69.9 cm/sec LV V1 mean P.36 mmHg LV V1 VTI: 13.8 cm PA max P.80 mmHg PA V2 max: 67.1 cm/sec Other Measurements & Calculations Ao root area: 14.9 cm² EDV(Teich): 114.1 ml EF(Teich): 31.9 % ESV(Teich): 77.8 ml FS: 15.1 % Procedure Notes: A focused 2D and Doppler study was performed. This study was focused secondary to limited cardiac windows. Technically difficult study due to body habitus and lung interference. Repeat with Definity recommended when / if rate controlled. The patient was uncomfortable throughout the procedure, causing significant difficulties in image acquisition. Patient tachypneic, sweating, uncomfortable and unable to reposition. Aquired as much information as patient tolerated. The underlying rhythm was sinus tachycardia. There were isolated premature atrial contractions. CPT Codes: 56000/[id number]: Transthoracic Echo with Spectral and Color Doppler. MD Rose Mary Blancas 10/02/2024, 5: 30 PM Ordering Physician: Delmis Sorensen Referring Physician: Anusha Solorzano Performed By: Betzy Russ RDCS
[2024-10-03 04:43] LABS: HCT - HEMATOCRIT 44.4 % (42.0-52.0); HGB - HEMOGLOBIN 13.8 g/dL (14.0-18.0); MEAN PLATELET VOLUME 11.0 fL (7.4-11.4); PLT - PLATELET COUNT 167 10^3/uL (130-450); RED CELL DISTRIBUTION WIDTH 13.4 % (12.0-15.0)
[2024-10-03 04:52] LABS: ABNORMAL LYMPHS % (MANUAL) 0 %; BASOPHILS # (MANUAL) 0.0 10^3/uL (0-0.1); EOSINOPHILS # (MANUAL) 0.0 10^3/uL (0-0.7)
[2024-10-03 05:02] LABS: BUN - BLOOD UREA NITROGEN 39.0 mg/dL (6-20); CARBON DIOXIDE - CO2 23.0 mmol/L (21-32); CREATININE 1.6 mg/dL (0.6-1.3); GFR - MDRD 42.0 (>89)
[2024-10-03 05:40] LABS: ABG BASE EXCESS 3.0 mmol/L (-2.0-3.0); ABG FRACTION OF INSPIRED O2 30.00; ABG HCO3 26.6 mmol/L (22.0-26.0); ABG MODE OF VENTILATION ASSIST/CONTROL; ABG OXYGEN SATURATION 100 % (95-98); ABG PCO2 35 mmHg (34-45); ABG PH 7.49 (7.35-7.45); ABG PO2 110 mmHg (83-108); ABG RESPIRATORY RATE 16 b/min; ABG TCO2 27.7 mmol/L (21.0-29.0)
[2024-10-03 06:30] LABS: BAND NEUTROPHILS % (MANUAL) 19 %; LYMPHOCYTES # (MANUAL) 0.4 10^3/uL (1.5-3.5); LYMPHOCYTES % (MANUAL) 2 %; MONOCYTES # (MANUAL) 0.4 10^3/uL (0.0-1.0); NEUTROPHILS # (MANUAL) 20.4 10^3/uL (1.5-6.6); PLATELET MORPHOLOGY NORMAL APPEARANCE (NORMAL); RBC MORPHOLOGY (MULTIPLE) NORMAL APPEARANCE (NORMAL)
[2024-10-03 06:31] LABS: PLATELET ESTIMATE, MANUAL NORMAL (130-450,000) (NORMAL); WBC MORPHOLOGY (MULTIPLE) NORMAL APPEARANCE (NORMAL)
[2024-10-03] MEDS: PANTOPRAZOLE 40 MG VIAL IVP SCH (06:44)
[2024-10-03] MEDS: NOREPINEPHRINE/0.9 % NS 8 MG/250 ML BAG IV SCH (07:34)
[2024-10-03] MEDS: POTASSIUM CHLORIDE 20 MEQ TABLET PO SCH (08:38)
[2024-10-03] MEDS: FUROSEMIDE 40 MG/4 ML VIAL IVP SCH ×2 (08:39→13:31)
[2024-10-03] MEDS: CHOLECALCIFEROL 25 MCG TABLET PO SCH (08:39)
[2024-10-03] MEDS: LOSARTAN 50 MG TABLET PO SCH (08:39)
[2024-10-03] MEDS: CHLORHEXIDINE GLUCONATE 15 ML UDC PO SCH (08:40)
[2024-10-03] MEDS ORDERED: FUROSEMIDE 40 MG TABLET PO SCH (09:00)
--- NOTE | 2024-10-03 09:52 | PROVIDER PROGRESS NOTE ---
Subjective Prog Note Date Prog Note Date: 10/02/24 Prog Note Time: 14:28 Subjective Pt reports feeling: Worse Subjective: Patient is intubated and sedated in the ICU. He appears comfortable. Yesterday, he developed increasing shortness of breath, increased work of breathing, and was subsequently intubated. Chest x-ray after the fact does show pulmonary vascular congestion, as well as moderate left-sided pleural effusion with left basilar infiltrate and atelectasis. This morning, we are trying to wean sedation, and will likely do SBT. He appears comfortable. After the propofol has been weaned off, he is starting to wake up and is following commands. Current Medications Current Medications Current Medications: Current Medications Generic Name Dose Route Start Last Admin Trade Name Freq PRN Reason Stop Dose Admin Acetaminophen 650 mg 09/30/24 16:53 10/02/24 17:20 Acetaminophen 325 Mg Tablet PO 650 mg Q4HR PRN Administration Pain 1 to 4, or Fever Albuterol 2.5 mg 10/02/24 19:53 Albuterol Neb 2.5 Mg/3 Ml INH RTQ4H PRN Wheezing Chlorhexidine Gluconate 15 ml 10/03/24 09:00 10/03/24 08:40 Chlorhexidine Gluconate 15 Ml Udc PO 15 ml BID TOMAS Administration Cholecalciferol 50 mcg 10/03/24 09:00 10/03/24 08:39 Cholecalciferol 25 Mcg Tablet PO 50 mcg DAILY TOMAS Administration Diclofenac Sodium 2 gm 09/30/24 22:09 10/02/24 18:00 Diclofenac Sodium 1% Gel 50 Gm Tube TOP 2 gm QID PRN Administration Mild Pain (Level 1-3) Enoxaparin Sodium 40 mg 10/01/24 09:00 10/03/24 08:39 Enoxaparin 40 Mg/0.4 Ml Syringe SUBQ 40 mg DAILY TOMAS Administration Escitalopram Oxalate 10 mg 10/02/24 09:00 10/03/24 08:39 Escitalopram 10 Mg Tablet PO 10 mg DAILY TOMAS Administration Furosemide 40 mg 10/03/24 09:00 10/03/24 08:39 Furosemide 40 Mg/4 Ml Vial IVP 40 mg DAILY TOMAS Administration Hydroxyzine Pamoate 25 mg 09/30/24 22:13 10/01/24 21:15 Hydroxyzine Pamoate 25 Mg Capsule PO 25 mg QPM PRN Administration Insomnia Hydroxyzine Pamoate 25 mg 10/01/24 10:36 10/02/24 17:23 Hydroxyzine Pamoate 25 Mg Capsule PO 25 mg TID PRN Administration Anxiety Piperacillin Sod/Tazobactam 100 mls @ 25 mls/hr 10/02/24 13:30 10/03/24 05:41 Sod 3.375 gm/ Sodium Chloride IV 25 mls/hr Q8H TOMAS Administration Propofol 1,000 mg in 100 mls @ 8.22 mls/hr 10/02/24 23:00 10/03/24 09:11 Diprivan IV 0 mcg/kg/min .[id number] TOMAS 0 mls/hr Protocol Titration 10 MCG/KG/MIN Norepinephrine/Sodium Chloride 8 mg in 250 mls @ 15 mls/hr 10/02/24 23:45 10/03/24 09:11 Levophed 8 Mg/250-0.9% Nacl IV 0 mcg/min .[id number] TOMAS 0 mls/hr Protocol Titration 8 MCG/MIN Lorazepam 0.5 mg 10/02/24 20:58 10/02/24 21:21 Lorazepam 2 Mg/Ml Vial IVP 0.5 mg Q4H PRN Administration Anxiety Losartan Potassium 50 mg 10/03/24 09:00 10/03/24 08:39 Losartan 50 Mg Tablet PO Not Given DAILY TOMAS Morphine Sulfate 2 mg 10/02/24 21:23 10/02/24 22:27 Morphine 2 Mg/Ml Carpuject IVP 2 mg Q2HR PRN Administration Severe Pain (Level 7-10) Ondansetron HCl 4 mg 09/30/24 16:53 Ondansetron Odt 4 Mg Tablet TL Q6HR PRN Nausea / Vomiting Ondansetron HCl 4 mg 09/30/24 16:53 Ondansetron 4 Mg/2 Ml Vial IVP Q6HR PRN Nausea / Vomiting Oxycodone HCl 5 mg 09/30/24 16:53 10/02/24 17:19 Oxycodone 5 Mg Tablet PO 5 mg Q4HR PRN Administration Pain 5 to 7 Pantoprazole Sodium 40 mg 10/03/24 07:00 10/03/24 06:44 Pantoprazole 40 Mg Vial IVP 40 mg QDAC TOMAS Administration Potassium Chloride 20 meq 10/03/24 08:00 10/03/24 08:38 Potassium Chloride 20 Meq Tablet PO 20 meq DAILYWM TOMAS Administration Multivit/Folic Acid/Iron 1 tab 10/02/24 08:00 10/03/24 08:38 Vitamin Tablet PO 1 tab DAILYWM TOMAS Administration Sodium Chloride 10 ml 09/30/24 16:53 10/03/24 07:35 Sodium Chloride Flush 0.9% 10 Ml Syringe IVP 10 ml PRN PRN Administration NEEDED PER PROVIDER ORDERS Sodium Chloride 10 ml 09/30/24 17:00 10/03/24 08:39 Sodium Chloride Flush 0.9% 10 Ml Syringe IVP 10 ml 0100,0900,1700 TOMAS Administration Thiamine HCl 100 mg 10/02/24 09:00 10/03/24 08:39 Thiamine 100 Mg Tablet PO 100 mg DAILY TOMAS Administration Tizanidine HCl 4 mg 10/02/24 22:00 10/03/24 05:41 Tizanidine 4 Mg Tablet PO 4 mg Q8HR TOMAS Administration Objective Vital Signs/Intake & Output Reviewed Vital Signs: Yes Vital Signs: Vital Signs x48h Temp Pulse Pulse Resp BP Pulse Ox 10/03/24 09:15 98 10/03/24 09:00 74 16 113/65 97 10/03/24 08:00 77 20 108/70 98 10/03/24 07:20 79 10/03/24 07:00 78 15 83/49 L 93 10/03/24 06:00 99.4 F 88 15 105/62 99 10/03/24 05:51 84 10/03/24 05:00 90 16 91/52 L 96 10/03/24 04:00 96 32 H 137/84 H 95 10/03/24 03:00 83 10/03/24 03:00 84 17 103/64 95 10/03/24 02:00 98.6 F 85 18 114/62 97 10/03/24 01:55 88 Intake & Output: Intake & Output 09/30/24 10/01/24 10/02/24 10/03/24 23:59 23:59 23:59 23:59 Intake Total 1520 / 1520 3918 / 3918 1592 / 1592 273 / 273 Output Total 200 / 200 375 / 375 600 / 600 775 / 775 Balance 1320 / 1320 3543 / 3543 992 / 992 -502 / -502 Weight (kg) 137 kg 136.5 kg Objective General Appearance: positive No acute distress and Other (Sedated on propofol; as it's being weaned off, ) Eyes Bilateral: positive PERRL and EOMI ENT: positive ENT inspection nml, Pharynx nml and No signs of dehydration Neck: positive Nml inspection, Thyroid nml and No JVD Respiratory: positive Chest non-tender, No respiratory distress and Other (Mild bibasilar Crackles, decreased breath sounds in left lower lobe) Cardiovascular: positive Regular rate & rhythm, No murmur and No gallop Abdomen: positive Non-tender, No organomegaly, Nml bowel sounds and No distention Back: positive Nml inspection; negative CVA tenderness (R) or CVA tenderness (L) Skin: positive Other (Erythematous of bilateral legs. The skin is red, taut, blistering. Oozing clear serous fluid. ) Extremities: positive Pedal edema Neurologic/Psychiatric: positive Other (Sedated and intubated) Lab Results 10/03/24 04:24 10/03/24 04:24 Other Labs: Lab Results x24hrs 10/03/24 10/03/24 10/02/24 Range/Units 05:25 04:24 23:10 WBC 21.3 H (4.8-10.8) x10^3/uL RBC 4.18 L (4.70-6.10) 10^6/uL Hgb 13.8 L (14.0-18.0) g/dL Hct 44.4 (42.0-52.0) % MCV 106.2 H (80.0-94.0) fL MCH 33.0 H (27.0-31.0) pg MCHC 31.1 L (32.0-36.0) g/dL RDW 13.4 (12.0-15.0) % Plt Count 167 (130-450) 10^3/uL MPV 11.0 (7.4-11.4) fL Neut # (Auto) Not Reportable Lymph # (Auto) Not Reportable [place] # (Auto) Not Reportable Eos # (Auto) Not Reportable Baso # (Auto) Not Reportable Absolute Nucleated RBC Not Reportable Total Counted 100 Band Neuts % (Manual) 19 H (0 - 10) % Abnorm Lymph % (Manual) 0 % Nucleated RBC % Not Reportable Neutrophils # (Manual) 20.4 H (1.5-6.6) 10^3/uL Lymphocytes # (Manual) 0.4 L (1.5-3.5) 10^3/uL Monocytes # (Manual) 0.4 (0.0-1.0) 10^3/uL Eosinophils # (Manual) 0.0 (0-0.7) 10^3/uL Basophils # (Manual) 0.0 (0-0.1) 10^3/uL Differential Comment MANUAL DIFFERENTIAL WBC Morphology NORMAL APPEARANCE (NORMAL) Platelet Estimate NORMAL (130-450,000) (NORMAL) Platelet Morphology NORMAL APPEARANCE (NORMAL) RBC Morph Micro Appear NORMAL APPEARANCE (NORMAL) Bld Gas Analysis Time 7342 5542 Sample Site RIGHT RADIAL RIGHT RADIAL ABG pH 7.49 H 7.41 (7.35-7.45) ABG pCO2 35 41 (34-45) mmHg ABG pO2 110 H 386 H (83-108) mmHg ABG HCO3 26.6 H 25.7 (22.0-26.0) mmol/L ABG Total CO2 27.7 26.9 (21.0-29.0) mmol/L ABG O2 Saturation 100 H 100 H (95-98) % ABG Base Excess 3.0 0.7 (-2.0-3.0) mmol/L Tk Test POSITIVE POSITIVE Respiration Rate 16 b/min O2 Delivery Device VENTILATOR VENTILATOR Vent Mode ASSIST/CONTROL ASSIST/CONTROL FiO2 30.00 100.00 Tidal Volume 500 500 mL PEEP 5 cmH2O Sodium 136 (135-145) mmol/L Potassium 4.5 (3.5-4.5) mmol/L Chloride 101 (101-111) mmol/L Carbon Dioxide 23 (21-32) mmol/L Anion Gap 12.0 (6-13) BUN 39 H (6-20) mg/dL Creatinine 1.6 H (0.6-1.3) mg/dL Estimated GFR (MDRD) 42 L (>89) Glucose 107 H (74-104) mg/dL Calcium 8.9 (8.5-10.3) mg/dL B-Natriuretic Peptide 1172 H (5-100) pg/mL Nasal Screen MRSA (PCR) (NEGATIVE) 10/02/24 10/02/24 Range/Units 22:16 20:05 WBC (4.8-10.8) x10^3/uL RBC (4.70-6.10) 10^6/uL Hgb (14.0-18.0) g/dL Hct (42.0-52.0) % MCV (80.0-94.0) fL MCH (27.0-31.0) pg MCHC (32.0-36.0) g/dL RDW (12.0-15.0) % Plt Count (130-450) 10^3/uL MPV (7.4-11.4) fL Neut # (Auto) Lymph # (Auto) [place] # (Auto) Eos # (Auto) Baso # (Auto) Absolute Nucleated RBC Total Counted Band Neuts % (Manual) (0 - 10) % Abnorm Lymph % (Manual) % Nucleated RBC % Neutrophils # (Manual) (1.5-6.6) 10^3/uL Lymphocytes # (Manual) (1.5-3.5) 10^3/uL Monocytes # (Manual) (0.0-1.0) 10^3/uL Eosinophils # (Manual) (0-0.7) 10^3/uL Basophils # (Manual) (0-0.1) 10^3/uL Differential Comment WBC Morphology (NORMAL) Platelet Estimate (NORMAL) Platelet Morphology (NORMAL) RBC Morph Micro Appear (NORMAL) Bld Gas Analysis Time 2013 Sample Site ABG pH 7.42 (7.35-7.45) ABG pCO2 38 (34-45) mmHg ABG pO2 80 L (83-108) mmHg ABG HCO3 24.9 (22.0-26.0) mmol/L ABG Total CO2 26.1 (21.0-29.0) mmol/L ABG O2 Saturation 95 (95-98) % ABG Base Excess 0.3 (-2.0-3.0) mmol/L Tk Test NOT APPLICABLE Respiration Rate b/min O2 Delivery Device C-PAP Vent Mode FiO2 21.00 Tidal Volume mL PEEP cmH2O Sodium (135-145) mmol/L Potassium (3.5-4.5) mmol/L Chloride (101-111) mmol/L Carbon Dioxide (21-32) mmol/L Anion Gap (6-13) BUN (6-20) mg/dL Creatinine (0.6-1.3) mg/dL Estimated GFR (MDRD) (>89) Glucose (74-104) mg/dL Calcium (8.5-10.3) mg/dL B-Natriuretic Peptide (5-100) pg/mL Nasal Screen MRSA (PCR) NEGATIVE (NEGATIVE) Diagnostic Imaging Diagnostic Imaging Results: positive Final report reviewed Diagnostic Imaging Comments: Venous duplex done yesterday evening at 10:25 PM shows no DVT but he does have bilateral popliteal cyst with small bilateral joint knee effusions. ABX Reporting Has patient been on IV antibiotics over the past 48 hours?: Yes Assessment/Plan Problem List (1) Acute respiratory failure with hypoxia: Impression: On 10/02, patient developed respiratory distress, failed BIPAP trial, and was subsequently, intubated and sedated. This morning, we tried a spontaneous breathing trial. Although patient was awake and following commands, he became very tachypneic, agitated, as well as tachycardic during his wean. His RSBI was greater than 105. Will put him back on propofol, and try again in the morning after further IV diuresis. CTA negative for PE. Echocardiogram shows new onset heart failure with EF of 20%. Chest x-ray with fluid overload. Continue IV Lasix 40 mg twice daily. Strict ins and outs, current daily weights. (2) New onset of congestive heart failure: Impression: Echo revealed new onset heart failure with ejection fraction of 20%. I spoke with the daughter at bedside; she will need to arrange cardiology follow-up in the outpatient setting. Patient will likely need an ischemic workup including cardiac catheterization. Will initiate GDMT when able. Patient is currently hypotensive, likely due to sedation, and is requiring Levophed. Will start with Coreg 3.125 mg twice daily with hold parameters today. (3) Cellulitis and abscess of leg: Impression: Patient has a history of lymphedema. Per daughter at bedside, has gotten progressively worse in the last 6 months. Wound cultures were drawn and show Pseudomonas as well as Enterococcus. Patient is currently on Zosyn, continued. Wound care instructions from wound care nurse are noted: Will have the leg gently cleansed and dried. Application of moisturizer to the legs and feet to help keep skin more pliable and flexible. Gentamicin ointment to open or weeping areas, oil emulsion gauze, ABD pads as needed for absorption. Secure with rolled gauze, 4 inch, using at least 2 rolls per leg. Secure drsg/gauze with 4 inch Vincent wraps, using 2 or 3 per leg. Vincent wraps should be applied with mild compression to avoid removing too much fluid, too fast and causing fluid overload. He will need follow-up with the lymphedema specialist in the outpatient setting. (4) Generalized anxiety disorder: Impression: Hold hydroxyzine, Ativan, tizanidine at this time, while patient is actively sedated. Will continue them as needed once more awake. (5) Atrial ectopy: Impression: Previous telemetry strip showed sinus with numerous ectopic beats. So numerous that at times I felt he was in A-fib for 10-12 beats. But today it is definitively sinus. P waves with every QRS. CT angiogram already done and there is no PE. TSH is slightly on the low side and I interpret that as on the hyperthyroid side. (6) Macrocytosis: Impression: He states that his alcohol use is 2-3 vodka drinks at a time. But only about 2 or 3 times a week. TSH slightly suppressed and B12 super high, Folate nml. He will need fu wth this in the outpt setting to make sure such nefarious processes such as myelodysplasia is not brewing. (7) Lymphedema: Impression: Plan to follow up with lymphedema specialist in the outpatient setting. (8) Muscular deconditioning: Impression: Will need PT evaluation when more stable.
[2024-10-03] MEDS: PIPERACILLIN/TAZOBACTAM 4.5 GM in SODIUM CHLORIDE 0.9% MINIBAG 100 ML IV SCH (13:31)
[2024-10-03] MEDS: ENOXAPARIN 40 MG/0.4 ML SYRINGE SUBQ SCH (21:13)
[2024-10-04 04:44] LABS: HCT - HEMATOCRIT 35.9 % (42.0-52.0); HGB - HEMOGLOBIN 11.7 g/dL (14.0-18.0); MEAN PLATELET VOLUME 11.0 fL (7.4-11.4); PLT - PLATELET COUNT 171 10^3/uL (130-450); RED CELL DISTRIBUTION WIDTH 13.4 % (12.0-15.0)
[2024-10-04 05:07] LABS: BUN - BLOOD UREA NITROGEN 43.0 mg/dL (6-20); CARBON DIOXIDE - CO2 28.0 mmol/L (21-32); CREATININE 1.6 mg/dL (0.6-1.3); GFR - MDRD 42.0 (>89)
[2024-10-04 05:16] LABS: ABNORMAL LYMPHS % (MANUAL) 0 %; BASOPHILS # (MANUAL) 0.0 10^3/uL (0-0.1); EOSINOPHILS # (MANUAL) 0.0 10^3/uL (0-0.7)
[2024-10-04 05:16] LABS: ABG OXYGEN SATURATION 98 % (95-98); ABG PCO2 34 mmHg (34-45); ABG PH 7.49 (7.35-7.45); ABG PO2 99 mmHg (83-108)
[2024-10-04 05:17] LABS: ABG BASE EXCESS 3.0 mmol/L (-2.0-3.0); ABG FRACTION OF INSPIRED O2 30.00; ABG HCO3 26.5 mmol/L (22.0-26.0); ABG MODE OF VENTILATION ASSIST/CONTROL; ABG RESPIRATORY RATE 16 b/min; ABG TCO2 27.5 mmol/L (21.0-29.0)
[2024-10-04 05:28] LABS: BAND NEUTROPHILS % (MANUAL) 9 %; LYMPHOCYTES # (MANUAL) 1.1 10^3/uL (1.5-3.5); LYMPHOCYTES % (MANUAL) 7 %; MONOCYTES # (MANUAL) 0.5 10^3/uL (0.0-1.0); MYELOCYTES % (MANUAL) 2 %; NEUTROPHILS # (MANUAL) 14.3 10^3/uL (1.5-6.6)
[2024-10-04 05:29] LABS: PLATELET ESTIMATE, MANUAL NORMAL (130-450,000) (NORMAL); RBC MORPHOLOGY (MULTIPLE) NORMAL APPEARANCE (NORMAL)
[2024-10-04 05:30] LABS: PLATELET MORPHOLOGY NORMAL APP (NORMAL); WBC MORPHOLOGY (MULTIPLE) 1+ DOHLE BODIES (NORMAL)
[2024-10-04] MEDS: COD LIVER OIL/ZINC OXIDE 113 GM TUBE TOP PRN (06:18)
[2024-10-04 06:33] LABS: VBG PCO2 43.2 mmHg (41-51); VBG PH 7.423 (7.31-7.41); VBG PO2 54.0 mmHg (25-47); VBG TOTAL CO2 29.8 mmol/L (24-29)
[2024-10-04 06:34] LABS: VBG BASE EXCESS 3.8 mmol/L (-2 - +2)
--- NOTE | 2024-10-04 07:58 | PROVIDER PROGRESS NOTE ---
Subjective Subjective Subjective: Patient is intubated and sedated in the ICU. He appears comfortable. On 10/03, he developed increasing shortness of breath, increased work of breathing, and was subsequently intubated. Chest x-ray after the fact does show pulmonary vascular congestion, as well as moderate left-sided pleural effusion with left basilar infiltrate and atelectasis. Current Medications Current Medications Current Medications: Current Medications Generic Name Dose Route Start Last Admin Trade Name Freq PRN Reason Stop Dose Admin Acetaminophen 650 mg 09/30/24 16:53 10/03/24 21:12 Acetaminophen 325 Mg Tablet PO 650 mg Q4HR PRN Administration Pain 1 to 4, or Fever Albuterol 2.5 mg 10/02/24 19:53 Albuterol Neb 2.5 Mg/3 Ml INH RTQ4H PRN Wheezing Carvedilol 3.125 mg 10/03/24 21:00 10/03/24 21:12 Carvedilol 3.125 Mg Tablet PO 3.125 mg BID TOMAS Administration Chlorhexidine Gluconate 15 ml 10/03/24 09:00 10/03/24 21:13 Chlorhexidine Gluconate 15 Ml Udc PO 15 ml BID TOMAS Administration Cholecalciferol 50 mcg 10/03/24 09:00 10/03/24 08:39 Cholecalciferol 25 Mcg Tablet PO 50 mcg DAILY TOMAS Administration Diclofenac Sodium 2 gm 09/30/24 22:09 10/02/24 18:00 Diclofenac Sodium 1% Gel 50 Gm Tube TOP 2 gm QID PRN Administration Mild Pain (Level 1-3) Enoxaparin Sodium 40 mg 10/03/24 21:00 10/03/24 21:13 Enoxaparin 40 Mg/0.4 Ml Syringe SUBQ 40 mg BID TOMAS Administration Escitalopram Oxalate 10 mg 10/02/24 09:00 10/03/24 08:39 Escitalopram 10 Mg Tablet PO 10 mg DAILY TOMAS Administration Furosemide 40 mg 10/03/24 14:00 10/04/24 06:18 Furosemide 40 Mg/4 Ml Vial IVP 40 mg BIDDIURETIC TOMAS Administration Gentamicin Sulfate 10 applic 10/04/24 11:00 Gentamicin 0.1% Topical Oint 30 Gm Tube TOP DAILY TOMAS Propofol 1,000 mg in 100 mls @ 8.22 mls/hr 10/02/24 23:00 10/04/24 07:27 Diprivan IV 15 mcg/kg/min .[id number] TOMAS 12.33 mls/hr Protocol Titration 10 MCG/KG/MIN Norepinephrine/Sodium Chloride 8 mg in 250 mls @ 15 mls/hr 10/02/24 23:45 10/03/24 09:11 Levophed 8 Mg/250-0.9% Nacl IV 0 mcg/min .[id number] TOMAS 0 mls/hr Protocol Titration 8 MCG/MIN Piperacillin Sod/Tazobactam 100 mls @ 25 mls/hr 10/03/24 12:00 10/04/24 03:47 Sod 4.5 gm/ Sodium Chloride IV 25 mls/hr Q8H TOMAS Administration Dexmedetomidine/Sodium Chloride 100 mls @ 6.8 mls/hr 10/04/24 08:00 Precedex Premix IV .[id number] TOMAS Protocol 0.2 MCG/KG/HR Losartan Potassium 50 mg 10/03/24 09:00 10/03/24 08:39 Losartan 50 Mg Tablet PO Not Given DAILY TOMAS Morphine Sulfate 2 mg 10/02/24 21:23 10/02/24 22:27 Morphine 2 Mg/Ml Carpuject IVP 2 mg Q2HR PRN Administration Severe Pain (Level 7-10) Ondansetron HCl 4 mg 09/30/24 16:53 Ondansetron Odt 4 Mg Tablet TL Q6HR PRN Nausea / Vomiting Ondansetron HCl 4 mg 09/30/24 16:53 Ondansetron 4 Mg/2 Ml Vial IVP Q6HR PRN Nausea / Vomiting Pantoprazole Sodium 40 mg 10/03/24 07:00 10/04/24 06:18 Pantoprazole 40 Mg Vial IVP 40 mg QDAC TOMAS Administration Potassium Chloride 20 meq 10/03/24 08:00 10/03/24 08:38 Potassium Chloride 20 Meq Tablet PO 20 meq DAILYWM TOMAS Administration Multivit/Folic Acid/Iron 1 tab 10/02/24 08:00 10/03/24 08:38 Vitamin Tablet PO 1 tab DAILYWM TOMAS Administration Sodium Chloride 10 ml 09/30/24 16:53 10/04/24 06:19 Sodium Chloride Flush 0.9% 10 Ml Syringe IVP 10 ml PRN PRN Administration NEEDED PER PROVIDER ORDERS Sodium Chloride 10 ml 09/30/24 17:00 10/04/24 03:47 Sodium Chloride Flush 0.9% 10 Ml Syringe IVP 10 ml 0100,0900,1700 TOMAS Administration Thiamine HCl 100 mg 10/02/24 09:00 10/03/24 08:39 Thiamine 100 Mg Tablet PO 100 mg DAILY TOMAS Administration Zinc Oxide 113 gm 10/03/24 20:17 10/04/24 06:18 Cod Liver Oil/Zinc Oxide 113 Gm Tube TOP 1 applic PRN PRN Administration Skin Care Objective Vital Signs/Intake & Output Reviewed Vital Signs: Yes Vital Signs: Vital Signs x48h Temp Pulse Pulse Resp BP Pulse Ox 10/04/24 07:45 90 10/04/24 07:00 86 29 H 111/60 91 L 10/04/24 06:00 98.4 F 74 18 114/63 97 10/04/24 05:00 75 21 116/62 98 10/04/24 04:51 77 10/04/24 04:00 75 20 104/55 L 95 10/04/24 03:00 78 20 117/67 99 10/04/24 03:00 75 10/04/24 02:00 77 25 H 99/55 L 95 10/04/24 01:00 99.0 F 77 21 105/51 L 96 10/04/24 00:30 78 10/04/24 00:00 76 22 101/56 L 95 Intake & Output: Intake & Output 10/01/24 10/02/24 10/03/24 10/04/24 23:59 23:59 23:59 23:59 Intake Total 3918 / 3918 1592 / 1592 1778 / 1778 214 / 214 Output Total 375 / 375 600 / 600 2650 / 2650 655 / 655 Balance 3543 / 3543 992 / 992 -872 / -872 -441 / -441 Weight (kg) 136.5 kg 136 kg Objective General Appearance: positive No acute distress and Other (Sedated on propofol; as it's being weaned off, ) Eyes Bilateral: positive PERRL and EOMI ENT: positive ENT inspection nml, Pharynx nml and No signs of dehydration Neck: positive Nml inspection, Thyroid nml and No JVD Respiratory: positive Chest non-tender, No respiratory distress and Other (Mild bibasilar Crackles, decreased breath sounds in left lower lobe) Cardiovascular: positive Regular rate & rhythm, No murmur and No gallop Abdomen: positive Non-tender, No organomegaly, Nml bowel sounds and No distention Back: positive Nml inspection; negative CVA tenderness (R) or CVA tenderness (L) Skin: positive Other (Erythematous of bilateral legs. The skin is red, taut, blistering. Oozing clear serous fluid. ) Extremities: positive Pedal edema Neurologic/Psychiatric: positive Other (Sedated and intubated) Lab Results 10/04/24 04:25 10/04/24 04:25 Other Labs: Lab Results x24hrs 10/04/24 10/04/24 10/04/24 Range/Units 06:20 05:05 04:25 WBC 16.2 H (4.8-10.8) x10^3/uL RBC 3.49 L (4.70-6.10) 10^6/uL Hgb 11.7 L (14.0-18.0) g/dL Hct 35.9 L (42.0-52.0) % MCV 102.9 H (80.0-94.0) fL MCH 33.5 H (27.0-31.0) pg MCHC 32.6 (32.0-36.0) g/dL RDW 13.4 (12.0-15.0) % Plt Count 171 (130-450) 10^3/uL MPV 11.0 (7.4-11.4) fL Neut # (Auto) Not Reportable Lymph # (Auto) Not Reportable [place] # (Auto) Not Reportable Eos # (Auto) Not Reportable Baso # (Auto) Not Reportable Absolute Nucleated RBC Not Reportable Total Counted 100 Band Neuts % (Manual) 9 (0 - 10) % Abnorm Lymph % (Manual) 0 % Myelocytes % 2 H ( - 0) % Nucleated RBC % Not Reportable Neutrophils # (Manual) 14.3 H (1.5-6.6) 10^3/uL Lymphocytes # (Manual) 1.1 L (1.5-3.5) 10^3/uL Monocytes # (Manual) 0.5 (0.0-1.0) 10^3/uL Eosinophils # (Manual) 0.0 (0-0.7) 10^3/uL Basophils # (Manual) 0.0 (0-0.1) 10^3/uL Differential Comment MANUAL DIFFERENTIAL WBC Morphology 1+ DOHLE BODIES (NORMAL) Platelet Estimate NORMAL (130-450,000) (NORMAL) Platelet Morphology NORMAL [place]A (NORMAL) RBC Morph Micro Appear NORMAL APPEARANCE (NORMAL) Bld Gas Analysis Time 0511 Sample Site RIGHT RADIAL ABG pH 7.49 H (7.35-7.45) ABG pCO2 34 (34-45) mmHg ABG pO2 99 (83-108) mmHg ABG HCO3 26.5 H (22.0-26.0) mmol/L ABG Total CO2 27.5 (21.0-29.0) mmol/L ABG O2 Saturation 98 (95-98) % ABG Base Excess 3.0 (-2.0-3.0) mmol/L Tk Test POSITIVE VBG pH 7.423 H (7.31-7.41) VBG pCO2 43.2 (41-51) mmHg VBG pO2 54.0 H (25-47) mmHg VBG HCO3 28.5 H (23-28) mmol/L VBG Total CO2 29.8 H (24-29) mmol/L VBG O2 Saturation 81.0 H (60-80) % VBG Base Excess 3.8 H (-2 - +2) mmol/L Respiration Rate 16 b/min O2 Delivery Device VENTILATOR Vent Mode ASSIST/CONTROL FiO2 30.00 Tidal Volume 500 mL PEEP 5 cmH2O Sodium 139 (135-145) mmol/L Potassium 3.8 (3.5-4.5) mmol/L Chloride 101 (101-111) mmol/L Carbon Dioxide 28 (21-32) mmol/L Anion Gap 10.0 (6-13) BUN 43 H (6-20) mg/dL Creatinine 1.6 H (0.6-1.3) mg/dL Estimated GFR (MDRD) 42 L (>89) Glucose 94 (74-104) mg/dL Calcium 8.5 (8.5-10.3) mg/dL Magnesium 2.2 (1.7-2.3) mg/dL B-Natriuretic Peptide 384 H (5-100) pg/mL Diagnostic Imaging Diagnostic Imaging Results: positive Final report reviewed Diagnostic Imaging Comments: Venous duplex done yesterday evening at 10:25 PM shows no DVT but he does have bilateral popliteal cyst with small bilateral joint knee effusions. ABX Reporting Has patient been on IV antibiotics over the past 48 hours?: Yes Assessment/Plan Problem List (1) Acute respiratory failure with hypoxia: Impression: On 10/02, patient developed respiratory distress, failed BIPAP trial, and was subsequently, intubated and sedated. This morning, we tried a spontaneous breathing trial. Although patient was awake and following commands, he became very tachypneic, agitated, as well as tachycardic during his wean. His RSBI was greater than 105. Will put him back on propofol, and try again in the morning after further IV diuresis. CTA negative for PE. Echocardiogram shows new onset heart failure with EF of 20%. Chest x-ray with fluid overload. Continue IV Lasix 40 mg twice daily. Strict ins and outs, current daily weights. (2) New onset of congestive heart failure: Impression: Echo revealed new onset heart failure with ejection fraction of 20%. I spoke with the daughter at bedside; she will need to arrange cardiology follow-up in the outpatient setting. Patient will likely need an ischemic workup including cardiac catheterization. Will initiate GDMT when able. Patient is currently hypotensive, likely due to sedation, and is requiring Levophed. Will start with Coreg 3.125 mg twice daily with hold parameters today. (3) Cellulitis and abscess of leg: Impression: Patient has a history of lymphedema. Per daughter at bedside, has gotten progressively worse in the last 6 months. Wound cultures were drawn and show Pseudomonas as well as Enterococcus. Patient is currently on Zosyn, continued. Wound care instructions from wound care nurse are noted: Will have the leg gently cleansed and dried. Application of moisturizer to the legs and feet to help keep skin more pliable and flexible. Gentamicin ointment to open or weeping areas, oil emulsion gauze, ABD pads as needed for absorption. Secure with rolled gauze, 4 inch, using at least 2 rolls per leg. Secure drsg/gauze with 4 inch Vincent wraps, using 2 or 3 per leg. Vincent wraps should be applied with mild compression to avoid removing too much fluid, too fast and causing fluid overload. He will need follow-up with the lymphedema specialist in the outpatient setting. (4) Generalized anxiety disorder: Impression: Hold hydroxyzine, Ativan, tizanidine at this time, while patient is actively sedated. Will continue them as needed once more awake. (5) Atrial ectopy: Impression: Previous telemetry strip showed sinus with numerous ectopic beats. So numerous that at times I felt he was in A-fib for 10-12 beats. But today it is definitively sinus. P waves with every QRS. CT angiogram already done and there is no PE. TSH is slightly on the low side and I interpret that as on the hyperthyroid side. (6) Macrocytosis: Impression: He states that his alcohol use is 2-3 vodka drinks at a time. But only about 2 or 3 times a week. TSH slightly suppressed and B12 super high, Folate nml. He will need fu wth this in the outpt setting to make sure such nefarious processes such as myelodysplasia is not brewing. (7) Lymphedema: Impression: Plan to follow up with lymphedema specialist in the outpatient setting. (8) Muscular deconditioning: Impression: Will need PT evaluation when more stable.
[2024-10-04] MEDS: DEXMEDETOMIDINE 400 MCG/100 ML 100 ML IV SCH (08:04)
--- NOTE | 2024-10-04 08:22 | XRAY Report ---
PROCEDURE: XR Chest 1V INDICATIONS: TAWNYA TECHNIQUE: One view of the chest was acquired. COMPARISON: 10/02/2024 FINDINGS: Surgical changes and devices: Right IJ central venous line, endotracheal tube, and nasogastric tubes are in position. Lungs and pleura: Mild thickening of the interstitial markings diffusely. Minor alveolar opacity at the right medial lung base. Probable small left base effusion. No pneumothorax. Mediastinum: Cardiomediastinal contour accentuated by supine position. Mild central vascular prominence. Stable cardiomegaly. Bones and chest wall: No suspicious bony lesions. Overlying soft tissues appear unremarkable. IMPRESSION: Stable support tubes and lines. Mild interstitial prominence, central venous congestion, and bibasilar opacities suggesting edema or atelectasis. Slightly improved aeration of left lung compared to the prior study. Reviewed by: Shelby Serrano MD on 10/04/2024 8:20 AM PDT Approved by: Shelby Serrano MD on 10/04/2024 8:20 AM PDT Station ID: [id number]
[2024-10-04] MEDS: GENTAMICIN 0.1% TOP SCH (14:00)
[2024-10-04] MEDS: KETOROLAC 15 MG/ML VIAL IVP STA (14:30)
[2024-10-04] MEDS ORDERED: VANCOMYCIN 1 GM VIAL ONE (20:14)
[2024-10-04] MEDS: VANCOMYCIN INJ 2 GM in SODIUM CHLORIDE 0.9% 500 ML IV ONE (20:21)
[2024-10-05 04:40] LABS: HCT - HEMATOCRIT 37.8 % (42.0-52.0); HGB - HEMOGLOBIN 12.1 g/dL (14.0-18.0); MEAN PLATELET VOLUME 11.2 fL (7.4-11.4); PLT - PLATELET COUNT 191 10^3/uL (130-450); RED CELL DISTRIBUTION WIDTH 13.4 % (12.0-15.0)
[2024-10-05 04:50] LABS: ABNORMAL LYMPHS % (MANUAL) 0 %; BASOPHILS # (MANUAL) 0.0 10^3/uL (0-0.1)
[2024-10-05 04:59] LABS: BUN - BLOOD UREA NITROGEN 50.0 mg/dL (6-20); CARBON DIOXIDE - CO2 27.0 mmol/L (21-32); CREATININE 1.6 mg/dL (0.6-1.3); GFR - MDRD 42.0 (>89)
[2024-10-05 05:10] LABS: ABG PCO2 35 mmHg (34-45); ABG PH 7.46 (7.35-7.45); ABG PO2 101 mmHg (83-108)
[2024-10-05 05:11] LABS: ABG BASE EXCESS 1.1 mmol/L (-2.0-3.0); ABG FRACTION OF INSPIRED O2 30.00; ABG HCO3 25.1 mmol/L (22.0-26.0); ABG MODE OF VENTILATION ASSIST/CONTROL; ABG OXYGEN SATURATION 99 % (95-98); ABG RESPIRATORY RATE 14 b/min; ABG TCO2 26.2 mmol/L (21.0-29.0)
[2024-10-05 05:15] LABS: BAND NEUTROPHILS % (MANUAL) 2 %; EOSINOPHILS # (MANUAL) 0.5 10^3/uL (0-0.7); LYMPHOCYTES # (MANUAL) 0.5 10^3/uL (1.5-3.5); LYMPHOCYTES % (MANUAL) 3 %; METAMYELOCYTES % (MANUAL) 4 %; MONOCYTES # (MANUAL) 0.7 10^3/uL (0.0-1.0); MYELOCYTES % (MANUAL) 2 %; NEUTROPHILS # (MANUAL) 13.8 10^3/uL (1.5-6.6)
[2024-10-05 05:16] LABS: PLATELET ESTIMATE, MANUAL NORMAL (130-450,000) (NORMAL); PLATELET MORPHOLOGY NORMAL APPEARANCE (NORMAL); RBC MORPHOLOGY (MULTIPLE) NORMAL APPEARANCE (NORMAL); WBC MORPHOLOGY (MULTIPLE) NORMAL APPEARANCE (NORMAL)
--- NOTE | 2024-10-05 09:33 | PROVIDER PROGRESS NOTE ---
Subjective Subjective Subjective: Patient is intubated and sedated in the ICU. He appears comfortable. On 10/03, he developed increasing shortness of breath, increased work of breathing, and was subsequently intubated. This morning, patient was weaned off of sedation. Spontaneous breathing trial was attempted. Patient did better than yesterday. His RSBI still greater than 105. He had a lot of shallow and rapid breathing. His last fever was yesterday evening. Repeat blood cultures were ordered, and vancomycin has been added. Will trial SBT again in the morning, likely extubation tomorrow. Current Medications Current Medications Current Medications: Current Medications Generic Name Dose Route Start Last Admin Trade Name Freq PRN Reason Stop Dose Admin Acetaminophen 650 mg 09/30/24 16:53 10/04/24 20:40 Acetaminophen 325 Mg Tablet PO 650 mg Q4HR PRN Administration Pain 1 to 4, or Fever Albuterol 2.5 mg 10/02/24 19:53 Albuterol Neb 2.5 Mg/3 Ml INH RTQ4H PRN Wheezing Carvedilol 3.125 mg 10/03/24 21:00 10/05/24 08:53 Carvedilol 3.125 Mg Tablet PO 3.125 mg BID TOMAS Administration Chlorhexidine Gluconate 15 ml 10/03/24 09:00 10/05/24 08:52 Chlorhexidine Gluconate 15 Ml Udc PO 15 ml BID TOMAS Administration Cholecalciferol 50 mcg 10/03/24 09:00 10/05/24 08:52 Cholecalciferol 25 Mcg Tablet PO 50 mcg DAILY TOMAS Administration Diclofenac Sodium 2 gm 09/30/24 22:09 10/02/24 18:00 Diclofenac Sodium 1% Gel 50 Gm Tube TOP 2 gm QID PRN Administration Mild Pain (Level 1-3) Enoxaparin Sodium 40 mg 10/03/24 21:00 10/05/24 08:55 Enoxaparin 40 Mg/0.4 Ml Syringe SUBQ 40 mg BID TOMAS Administration Escitalopram Oxalate 10 mg 10/02/24 09:00 10/05/24 08:53 Escitalopram 10 Mg Tablet PO 10 mg DAILY TOMAS Administration Furosemide 40 mg 10/03/24 14:00 10/05/24 06:08 Furosemide 40 Mg/4 Ml Vial IVP 40 mg BIDDIURETIC TOMAS Administration Gentamicin Sulfate 10 applic 10/04/24 11:00 10/04/24 14:00 Gentamicin 0.1% Topical Oint 30 Gm Tube TOP 1 applic DAILY TOMAS Administration Propofol 1,000 mg in 100 mls @ 8.22 mls/hr 10/02/24 23:00 10/05/24 08:46 Diprivan IV 10 mcg/kg/min .[id number] TOMAS 8.22 mls/hr Protocol Titration 10 MCG/KG/MIN Norepinephrine/Sodium Chloride 8 mg in 250 mls @ 15 mls/hr 10/02/24 23:45 10/05/24 08:54 Levophed 8 Mg/250-0.9% Nacl IV Not Given .[id number] TOMAS Protocol 8 MCG/MIN Piperacillin Sod/Tazobactam 100 mls @ 25 mls/hr 10/03/24 12:00 10/05/24 08:44 Sod 4.5 gm/ Sodium Chloride IV Infused Q8H TOMAS Infusion Dexmedetomidine/Sodium Chloride 100 mls @ 6.8 mls/hr 10/04/24 08:00 10/05/24 08:45 Precedex Premix IV 1 mcg/kg/hr .[id number] TOMAS 34 mls/hr Protocol Titration 0.2 MCG/KG/HR Vancomycin HCl 1.25 gm/ Sodium 500 mls @ 250 mls/hr 10/05/24 20:00 Chloride IV Q24H [facility] Morphine Sulfate 2 mg 10/02/24 21:23 10/02/24 22:27 Morphine 2 Mg/Ml Carpuject IVP 2 mg Q2HR PRN Administration Severe Pain (Level 7-10) Ondansetron HCl 4 mg 09/30/24 16:53 Ondansetron Odt 4 Mg Tablet TL Q6HR PRN Nausea / Vomiting Ondansetron HCl 4 mg 09/30/24 16:53 Ondansetron 4 Mg/2 Ml Vial IVP Q6HR PRN Nausea / Vomiting Pantoprazole Sodium 40 mg 10/03/24 07:00 10/05/24 06:08 Pantoprazole 40 Mg Vial IVP 40 mg QDAC [facility] Administration Potassium Chloride 20 meq 10/03/24 08:00 10/05/24 08:53 Potassium Chloride 20 Meq Tablet PO 20 meq DAILYWM [facility] Administration Multivit/Folic Acid/Iron 1 tab 10/02/24 08:00 10/05/24 08:53 Vitamin Tablet PO 1 tab DAILYWM TOMAS Administration Sodium Chloride 10 ml 09/30/24 16:53 10/05/24 06:08 Sodium Chloride Flush 0.9% 10 Ml Syringe IVP 10 ml PRN PRN Administration NEEDED PER PROVIDER ORDERS Sodium Chloride 10 ml 09/30/24 17:00 10/05/24 08:55 Sodium Chloride Flush 0.9% 10 Ml Syringe IVP 10 ml 0100,0900,1700 TOMAS Administration Thiamine HCl 100 mg 10/02/24 09:00 10/05/24 08:52 Thiamine 100 Mg Tablet PO 100 mg DAILY TOMAS Administration Vancomycin HCl 1 each 10/04/24 18:06 Vancomycin: Pharmacy To Dose MC .ONCE PRN PER PHARMACY Zinc Oxide 113 gm 10/03/24 20:17 10/04/24 06:18 Cod Liver Oil/Zinc Oxide 113 Gm Tube TOP 1 applic PRN PRN Administration Skin Care Objective Vital Signs/Intake & Output Reviewed Vital Signs: Yes Vital Signs: Vital Signs x48h Temp Pulse Pulse Resp BP Pulse Ox 10/05/24 09:00 62 16 114/65 97 10/05/24 08:00 97.5 F L 63 16 107/60 97 10/05/24 07:33 67 10/05/24 07:00 66 16 104/55 L 92 10/05/24 06:00 99.7 F 66 24 120/63 97 10/05/24 05:28 68 10/05/24 05:00 69 21 121/72 97 10/05/24 04:00 68 16 136/67 H 97 10/05/24 03:00 100 F 69 21 136/73 H 97 10/05/24 02:00 69 16 114/61 94 10/05/24 01:52 67 Intake & Output: Intake & Output 10/02/24 10/03/24 10/04/24 10/05/24 23:59 23:59 23:59 23:59 Intake Total 1592 / 1592 1778 / 1778 805 / 805 1066 / 1066 Output Total 600 / 600 2650 / 2650 2555 / 2555 1225 / 1225 Balance 992 / 992 -872 / -872 -1750 / -1750 -159 / -159 Weight (kg) 136.5 kg 136 kg 136.5 kg Objective General Appearance: positive No acute distress and Other (Sedated on propofol; as it's being weaned off, ) Eyes Bilateral: positive PERRL and EOMI ENT: positive ENT inspection nml, Pharynx nml and No signs of dehydration Neck: positive Nml inspection, Thyroid nml and No JVD Respiratory: positive Chest non-tender, No respiratory distress and Other (Mild bibasilar Crackles, decreased breath sounds in left lower lobe) Cardiovascular: positive Regular rate & rhythm, No murmur and No gallop Abdomen: positive Non-tender, No organomegaly, Nml bowel sounds and No distention Back: positive Nml inspection; negative CVA tenderness (R) or CVA tenderness (L) Skin: positive Other (Erythematous of bilateral legs. The skin is red, taut, blistering. Oozing clear serous fluid. ) Extremities: positive Pedal edema Neurologic/Psychiatric: positive Other (Sedated and intubated) Lab Results 10/05/24 04:31 10/05/24 04:31 Other Labs: Lab Results x24hrs 10/05/24 10/05/24 Range/Units 04:50 04:31 WBC 16.4 H (4.8-10.8) x10^3/uL RBC 3.62 L (4.70-6.10) 10^6/uL Hgb 12.1 L (14.0-18.0) g/dL Hct 37.8 L (42.0-52.0) % MCV 104.4 H (80.0-94.0) fL MCH 33.4 H (27.0-31.0) pg MCHC 32.0 (32.0-36.0) g/dL RDW 13.4 (12.0-15.0) % Plt Count 191 (130-450) 10^3/uL MPV 11.2 (7.4-11.4) fL Neut # (Auto) Not Reportable Lymph # (Auto) Not Reportable [place] # (Auto) Not Reportable Eos # (Auto) Not Reportable Baso # (Auto) Not Reportable Absolute Nucleated RBC Not Reportable Total Counted 100 Band Neuts % (Manual) 2 (0 - 10) % Abnorm Lymph % (Manual) 0 % Metamyelocytes % 4 H ( - 0) % Myelocytes % 2 H ( - 0) % Nucleated RBC % Not Reportable Neutrophils # (Manual) 13.8 H (1.5-6.6) 10^3/uL Lymphocytes # (Manual) 0.5 L (1.5-3.5) 10^3/uL Monocytes # (Manual) 0.7 (0.0-1.0) 10^3/uL Eosinophils # (Manual) 0.5 (0-0.7) 10^3/uL Basophils # (Manual) 0.0 (0-0.1) 10^3/uL Differential Comment MANUAL DIFFERENTIAL WBC Morphology NORMAL APPEARANCE (NORMAL) Platelet Estimate NORMAL (130-450,000) (NORMAL) Platelet Morphology NORMAL APPEARANCE (NORMAL) RBC Morph Micro Appear NORMAL APPEARANCE (NORMAL) Bld Gas Analysis Time 0500 Sample Site LEFT RADIAL ABG pH 7.46 H (7.35-7.45) ABG pCO2 35 (34-45) mmHg ABG pO2 101 (83-108) mmHg ABG HCO3 25.1 (22.0-26.0) mmol/L ABG Total CO2 26.2 (21.0-29.0) mmol/L ABG O2 Saturation 99 H (95-98) % ABG Base Excess 1.1 (-2.0-3.0) mmol/L Tk Test POSITIVE Respiration Rate 14 b/min O2 Delivery Device VENTILATOR Vent Mode ASSIST/CONTROL FiO2 30.00 Tidal Volume 500 mL PEEP 5 cmH2O Sodium 141 (135-145) mmol/L Potassium 3.7 (3.5-4.5) mmol/L Chloride 103 (101-111) mmol/L Carbon Dioxide 27 (21-32) mmol/L Anion Gap 11.0 (6-13) BUN 50 H (6-20) mg/dL Creatinine 1.6 H (0.6-1.3) mg/dL Estimated GFR (MDRD) 42 L (>89) Glucose 124 H (74-104) mg/dL Calcium 8.4 L (8.5-10.3) mg/dL Magnesium 2.3 (1.7-2.3) mg/dL B-Natriuretic Peptide 430 H (5-100) pg/mL Diagnostic Imaging Diagnostic Imaging Results: positive Final report reviewed Diagnostic Imaging Comments: Venous duplex done yesterday evening at 10:25 PM shows no DVT but he does have bilateral popliteal cyst with small bilateral joint knee effusions. ABX Reporting Has patient been on IV antibiotics over the past 48 hours?: Yes Assessment/Plan Problem List (1) Acute respiratory failure with hypoxia: Impression: On 10/02, patient developed respiratory distress, failed BIPAP trial, and was subsequently, intubated and sedated. This morning, we tried a spontaneous breathing trial. Although patient was awake and following commands, he became very tachypneic, agitated, as well as tachycardic during his wean. His RSBI was greater than 105. Will put him back on propofol, and try again in the morning after further IV diuresis. CTA negative for PE. Echocardiogram shows new onset heart failure with EF of 20%. Chest x-ray with fluid overload. Continue IV Lasix 40 mg twice daily. Strict ins and outs, current daily weights. Repeat chest x-ray ordered for tomorrow morning. (2) Sepsis: Impression: Over the last 24 hours, patient has been spiking fevers, as high as 101.9. He has a leukocytosis which is stable around 16. Blood cultures were repeated on 10/04. Wound culture completed 09/30 does show Pseudomonas which is pansensitive as well as Enterococcus which is resistant to streptomycin. He was previously just on Zosyn, and was escalated to vancomycin and Zosyn yesterday evening. Requiring Levophed at a very minimal dose. Qualifiers: Sepsis acute organ dysfunction status: unspecified Sepsis type: sepsis due to unspecified organism Qualified Code(s): A41.9 - Sepsis, unspecified organism (3) New onset of congestive heart failure: Impression: Echo revealed new onset heart failure with ejection fraction of 20%. I spoke with the daughter at bedside; she will need to arrange cardiology follow-up in the outpatient setting. Patient will likely need an ischemic workup including cardiac catheterization. Will initiate GDMT when able. Patient is currently hypotensive, likely due to sedation, and is requiring Levophed. Will start with Coreg 3.125 mg twice daily with hold parameters today. (4) Cellulitis and abscess of leg: Impression: Patient has a history of lymphedema. Per daughter at bedside, has gotten progressively worse in the last 6 months. Wound cultures were drawn and show Pseudomonas as well as Enterococcus. Patient is currently on Zosyn, continued. Wound care instructions from wound care nurse are noted: Will have the leg gently cleansed and dried. Application of moisturizer to the legs and feet to help keep skin more pliable and flexible. Gentamicin ointment to open or weeping areas, oil emulsion gauze, ABD pads as needed for absorption. Secure with rolled gauze, 4 inch, using at least 2 rolls per leg. Secure drsg/gauze with 4 inch Vincent wraps, using 2 or 3 per leg. Vincent wraps should be applied with mild compression to avoid removing too much fluid, too fast and causing fluid overload. He will need follow-up with the lymphedema specialist in the outpatient setting. (5) Generalized anxiety disorder: Impression: Hold hydroxyzine, Ativan, tizanidine at this time, while patient is actively sedated. Will continue them as needed once more awake. (6) Atrial ectopy: Impression: Previous telemetry strip showed sinus with numerous ectopic beats. So numerous that at times I felt he was in A-fib for 10-12 beats. But today it is definitively sinus. P waves with every QRS. CT angiogram already done and there is no PE. TSH is slightly on the low side and I interpret that as on the hyperthyroid side. (7) Macrocytosis: Impression: He states that his alcohol use is 2-3 vodka drinks at a time. But only about 2 or 3 times a week. TSH slightly suppressed and B12 super high, Folate nml. He will need fu wth this in the outpt setting to make sure such nefarious processes such as myelodysplasia is not brewing. (8) Lymphedema: Impression: Plan to follow up with lymphedema specialist in the outpatient setting. (9) Muscular deconditioning: Impression: Will need PT evaluation when more stable.
--- NOTE | 2024-10-05 17:46 | PROVIDER PROGRESS NOTE ---
Progress Note Progress Note Progress Note: Daily face to face encounter with patient to observe lower extremites and renew restraint orders to protect ET tube.
[2024-10-05] MEDS: VANCOMYCIN INJ 1.25 GM in SODIUM CHLORIDE 0.9% 500 ML IV SCH (19:55)
[2024-10-06 04:43] LABS: HCT - HEMATOCRIT 35.8 % (42.0-52.0); HGB - HEMOGLOBIN 11.8 g/dL (14.0-18.0); MEAN PLATELET VOLUME 11.8 fL (7.4-11.4); PLT - PLATELET COUNT 200.0 10^3/uL (130-450); RED CELL DISTRIBUTION WIDTH 13.3 % (12.0-15.0)
[2024-10-06 04:45] LABS: VBG PH 7.429 (7.31-7.41)
[2024-10-06 05:06] LABS: ABG PH 7.51 (7.35-7.45)
[2024-10-06 05:08] LABS: ABG PCO2 34 mmHg (34-45); ABG PO2 88 mmHg (83-108)
[2024-10-06 05:09] LABS: ABG OXYGEN SATURATION 97 % (95-98)
[2024-10-06 05:10] LABS: ABG TCO2 28.3 mmol/L (21.0-29.0)
[2024-10-06 05:14] LABS: ABG BASE EXCESS 4.1 mmol/L (-2.0-3.0); ABG HCO3 27.3 mmol/L (22.0-26.0)
[2024-10-06 05:15] LABS: ABG FRACTION OF INSPIRED O2 30.00; ABG MODE OF VENTILATION ASSIST/CONTROL; ABG RESPIRATORY RATE 14 b/min
[2024-10-06 05:31] LABS: BUN - BLOOD UREA NITROGEN 52.0 mg/dL (6-20); CARBON DIOXIDE - CO2 28.0 mmol/L (21-32); CREATININE 1.5 mg/dL (0.6-1.3); GFR - MDRD 45.0 (>89); PHOSPHORUS 4.0 mg/dL (2.5-5.0)
[2024-10-06 09:40] LABS: ABG BASE EXCESS 3.6 mmol/L (-2.0-3.0); ABG HCO3 26.8 mmol/L (22.0-26.0); ABG MODE OF VENTILATION SPONTANEOUS; ABG OXYGEN SATURATION 98 % (95-98); ABG PCO2 33 mmHg (34-45); ABG PH 7.51 (7.35-7.45); ABG PO2 93 mmHg (83-108); ABG TCO2 27.8 mmol/L (21.0-29.0)
[2024-10-06 09:41] LABS: ABG FRACTION OF INSPIRED O2 45.00
--- NOTE | 2024-10-06 10:00 | PROVIDER PROGRESS NOTE ---
Subjective Subjective Subjective: Patient is intubated and sedated in the ICU. He appears comfortable. On 10/03, he developed increasing shortness of breath, increased work of breathing, and was subsequently intubated. This morning, patient was weaned off of sedation. Spontaneous breathing trial was attempted. Patient did better than yesterday. He had a lot of shallow and rapid breathing. Will try again this evening. Current Medications Current Medications Current Medications: Current Medications Generic Name Dose Route Start Last Admin Trade Name Freq PRN Reason Stop Dose Admin Acetaminophen 650 mg 09/30/24 16:53 10/05/24 15:40 Acetaminophen 325 Mg Tablet PO 650 mg Q4HR PRN Administration Pain 1 to 4, or Fever Albuterol 2.5 mg 10/02/24 19:53 Albuterol Neb 2.5 Mg/3 Ml INH RTQ4H PRN Wheezing Carvedilol 3.125 mg 10/03/24 21:00 10/06/24 08:27 Carvedilol 3.125 Mg Tablet PO Not Given BID TOMAS Chlorhexidine Gluconate 15 ml 10/03/24 09:00 10/06/24 08:27 Chlorhexidine Gluconate 15 Ml Udc PO 15 ml BID TOMAS Administration Cholecalciferol 50 mcg 10/03/24 09:00 10/06/24 08:26 Cholecalciferol 25 Mcg Tablet PO 50 mcg DAILY TOMAS Administration Diclofenac Sodium 2 gm 09/30/24 22:09 10/02/24 18:00 Diclofenac Sodium 1% Gel 50 Gm Tube TOP 2 gm QID PRN Administration Mild Pain (Level 1-3) Enoxaparin Sodium 40 mg 10/03/24 21:00 10/06/24 08:27 Enoxaparin 40 Mg/0.4 Ml Syringe SUBQ 40 mg BID TOMAS Administration Escitalopram Oxalate 10 mg 10/02/24 09:00 10/06/24 08:26 Escitalopram 10 Mg Tablet PO 10 mg DAILY TOMAS Administration Furosemide 40 mg 10/03/24 14:00 10/06/24 06:13 Furosemide 40 Mg/4 Ml Vial IVP 40 mg BIDDIURETIC TOMAS Administration Gentamicin Sulfate 10 applic 10/04/24 11:00 10/06/24 08:27 Gentamicin 0.1% Topical Oint 30 Gm Tube TOP 10 applic DAILY TOMAS Administration Propofol 1,000 mg in 100 mls @ 8.22 mls/hr 10/02/24 23:00 10/06/24 09:40 Diprivan IV 12.17 mcg/kg/min .[id number] TOMAS 10 mls/hr Protocol Titration 10 MCG/KG/MIN Norepinephrine/Sodium Chloride 8 mg in 250 mls @ 15 mls/hr 10/02/24 23:45 10/06/24 08:30 Levophed 8 Mg/250-0.9% Nacl IV 0 mcg/min .[id number] TOMAS 0 mls/hr Protocol Titration 8 MCG/MIN Piperacillin Sod/Tazobactam 100 mls @ 25 mls/hr 10/03/24 12:00 10/06/24 08:34 Sod 4.5 gm/ Sodium Chloride IV Infused Q8H TOMAS Infusion Dexmedetomidine/Sodium Chloride 100 mls @ 6.8 mls/hr 10/04/24 08:00 10/06/24 09:42 Precedex Premix IV 0 mcg/kg/hr .[id number] TOMAS 0 mls/hr Protocol Titration 0.2 MCG/KG/HR Vancomycin HCl 1.25 gm/ Sodium 500 mls @ 250 mls/hr 10/05/24 20:00 10/05/24 22:28 Chloride IV Infused Q24H TOMAS Infusion Morphine Sulfate 2 mg 10/02/24 21:23 10/05/24 16:12 Morphine 2 Mg/Ml Carpuject IVP 2 mg Q2HR PRN Administration Severe Pain (Level 7-10) Ondansetron HCl 4 mg 09/30/24 16:53 Ondansetron Odt 4 Mg Tablet TL Q6HR PRN Nausea / Vomiting Ondansetron HCl 4 mg 09/30/24 16:53 Ondansetron 4 Mg/2 Ml Vial IVP Q6HR PRN Nausea / Vomiting Pantoprazole Sodium 40 mg 10/03/24 07:00 10/06/24 06:13 Pantoprazole 40 Mg Vial IVP 40 mg QDAC TOMAS Administration Potassium Chloride 20 meq 10/03/24 08:00 10/06/24 08:26 Potassium Chloride 20 Meq Tablet PO 20 meq DAILYWM TOMAS Administration Multivit/Folic Acid/Iron 1 tab 10/02/24 08:00 10/06/24 08:26 Vitamin Tablet PO 1 tab DAILYWM TOMAS Administration Sodium Chloride 10 ml 09/30/24 16:53 10/06/24 06:14 Sodium Chloride Flush 0.9% 10 Ml Syringe IVP 10 ml PRN PRN Administration NEEDED PER PROVIDER ORDERS Sodium Chloride 10 ml 09/30/24 17:00 10/06/24 08:47 Sodium Chloride Flush 0.9% 10 Ml Syringe IVP 10 ml 0100,0900,1700 TOMAS Administration Thiamine HCl 100 mg 10/02/24 09:00 10/06/24 08:26 Thiamine 100 Mg Tablet PO 100 mg DAILY TOMAS Administration Zinc Oxide 113 gm 10/03/24 20:17 10/04/24 06:18 Cod Liver Oil/Zinc Oxide 113 Gm Tube TOP 1 applic PRN PRN Administration Skin Care Objective Vital Signs/Intake & Output Reviewed Vital Signs: Yes Vital Signs: Vital Signs x48h Temp Pulse Pulse Resp BP Pulse Ox 10/06/24 09:51 80 10/06/24 09:00 65 13 121/68 94 10/06/24 08:00 98.1 F 64 20 121/63 92 10/06/24 07:19 68 10/06/24 06:26 63 18 120/64 94 10/06/24 06:00 62 15 112/63 95 10/06/24 05:50 68 10/06/24 05:00 62 15 111/59 L 95 10/06/24 04:00 99.7 F 62 14 111/62 94 10/06/24 03:32 61 10/06/24 02:59 62 20 113/80 94 Intake & Output: Intake & Output 10/03/24 10/04/24 10/05/24 10/06/24 23:59 23:59 23:59 23:59 Intake Total 1778 / 1778 805 / 805 2191 / 2191 525 / 525 Output Total 2650 / 2650 2555 / 2555 2580 / 2580 1315 / 1315 Balance -872 / -872 -1750 / -1750 -389 / -389 -790 / -790 Weight (kg) 136.5 kg 136 kg 136.5 kg 136.2 kg Objective General Appearance: positive No acute distress and Other (Sedated on propofol; as it's being weaned off, ) Eyes Bilateral: positive PERRL and EOMI ENT: positive ENT inspection nml, Pharynx nml and No signs of dehydration Neck: positive Nml inspection, Thyroid nml and No JVD Respiratory: positive Chest non-tender, No respiratory distress and Other (Mild bibasilar Crackles, decreased breath sounds in left lower lobe) Cardiovascular: positive Regular rate & rhythm, No murmur and No gallop Abdomen: positive Non-tender, No organomegaly, Nml bowel sounds and No distention Back: positive Nml inspection; negative CVA tenderness (R) or CVA tenderness (L) Skin: positive Other (Erythematous of bilateral legs. The skin is red, taut, blistering. Oozing clear serous fluid. ) Extremities: positive Pedal edema Neurologic/Psychiatric: positive Other (Sedated and intubated) Lab Results 10/06/24 04:25 10/06/24 04:25 Other Labs: Lab Results x24hrs 10/06/24 10/06/24 10/06/24 Range/Units 09:20 04:55 04:25 WBC 13.8 H (4.8-10.8) x10^3/uL RBC 3.49 L (4.70-6.10) 10^6/uL Hgb 11.8 L (14.0-18.0) g/dL Hct 35.8 L (42.0-52.0) % MCV 102.6 H (80.0-94.0) fL MCH 33.8 H (27.0-31.0) pg MCHC 33.0 (32.0-36.0) g/dL RDW 13.3 (12.0-15.0) % Plt Count 200 (130-450) 10^3/uL MPV 11.8 H (7.4-11.4) fL Bld Gas Analysis Time 919 457 Sample Site RIGHT RADIAL LEFT RADIAL ABG pH 7.51 H 7.51 H (7.35-7.45) ABG pCO2 33 L 34 (34-45) mmHg ABG pO2 93 88 (83-108) mmHg ABG HCO3 26.8 H 27.3 H (22.0-26.0) mmol/L ABG Total CO2 27.8 28.3 (21.0-29.0) mmol/L ABG O2 Saturation 98 97 (95-98) % ABG Base Excess 3.6 H 4.1 H (-2.0-3.0) mmol/L Tk Test POSITIVE POSITIVE VBG pH 7.429 H (7.31-7.41) Ionized Calcium 1.19 (1.09-1.30) mmol/L Respiration Rate 14 b/min O2 Delivery Device VENTILATOR VENTILATOR Vent Mode SPONTANEOUS ASSIST/CONTROL FiO2 45.00 30.00 Tidal Volume 500 mL PEEP 5 5 cmH2O Pressure Support Vent 10 cmH2O Sodium 142 (135-145) mmol/L Potassium 3.8 (3.5-4.5) mmol/L Chloride 106 (101-111) mmol/L Carbon Dioxide 28 (21-32) mmol/L Anion Gap 8.0 (6-13) BUN 52 H (6-20) mg/dL Creatinine 1.5 H (0.6-1.3) mg/dL Estimated GFR (MDRD) 45 L (>89) Glucose 134 H (74-104) mg/dL Calcium 8.2 L (8.5-10.3) mg/dL Phosphorus 4.0 (2.5-5.0) mg/dL Magnesium 2.2 (1.7-2.3) mg/dL Diagnostic Imaging Diagnostic Imaging Results: positive Final report reviewed Diagnostic Imaging Comments: Venous duplex done yesterday evening at 10:25 PM shows no DVT but he does have bilateral popliteal cyst with small bilateral joint knee effusions. ABX Reporting Has patient been on IV antibiotics over the past 48 hours?: Yes Assessment/Plan Problem List (1) Acute respiratory failure with hypoxia: Impression: On 10/02, patient developed respiratory distress, failed BIPAP trial, and was subsequently, intubated and sedated. This morning, we tried a spontaneous breathing trial. Although patient was awake and following commands, he became very tachypneic, and was working hard during his wean. His RSBI was greater than 105. CTA negative for PE. Echocardiogram shows new onset heart failure with EF of 20%. Repeat chest x-ray appears worse with diffuse fluid overload. Concerned that there may be progression to ARDS. He has been diuresing well with about 2-3 liters of urine output every day. Continue IV Lasix 40 mg twice daily. Will trial steroid burst with IV Solu-Medrol 40 mg 3 times daily. Increased PEEP to 8. Strict ins and outs, current daily weights. Repeat chest x-ray ordered for AM. 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 (2) Sepsis: Impression: Afebrile over the last 24 hours. Previously had been spiking fevers, as high as 101.9. He has a leukocytosis which is now improving. Blood cultures were repeated on 10/04. Wound culture completed 09/30 does show Pseudomonas which is pansensitive as well as Enterococcus which is resistant to streptomycin. He was previously just on Zosyn, and was escalated to vancomycin and Zosyn. Requiring Levophed at a very minimal dose. Qualifiers: Sepsis acute organ dysfunction status: unspecified Sepsis type: sepsis due to unspecified organism Qualified Code(s): A41.9 - Sepsis, unspecified organism (3) New onset of congestive heart failure: Impression: Echo revealed new onset heart failure with ejection fraction of 20%. I spoke with the daughter at bedside; she will need to arrange cardiology follow-up in the outpatient setting. Patient will likely need an ischemic workup including cardiac catheterization. Will initiate GDMT when able. Patient is currently hypotensive, likely due to sedation, and is requiring Levophed. Will start with Coreg 3.125 mg twice daily with hold parameters today. (4) Cellulitis and abscess of leg: Impression: Patient has a history of lymphedema. Per daughter at bedside, has gotten progressively worse in the last 6 months. Wound cultures were drawn and show Pseudomonas as well as Enterococcus. Patient is currently on Zosyn, continued. Wound care instructions from wound care nurse are noted: Will have the leg gently cleansed and dried. Application of moisturizer to the legs and feet to help keep skin more pliable and flexible. Gentamicin ointment to open or weeping areas, oil emulsion gauze, ABD pads as needed for absorption. Secure with rolled gauze, 4 inch, using at least 2 rolls per leg. Secure drsg/gauze with 4 inch Vincent wraps, using 2 or 3 per leg. Vincent wraps should be applied with mild compression to avoid removing too much fluid, too fast and causing fluid overload. He will need follow-up with the lymphedema specialist in the outpatient setting. (5) Generalized anxiety disorder: Impression: Hold hydroxyzine, Ativan, tizanidine at this time, while patient is actively sedated. Will continue them as needed once more awake. (6) Atrial ectopy: Impression: Previous telemetry strip showed sinus with numerous ectopic beats. So numerous that at times I felt he was in A-fib for 10-12 beats. But today it is definitively sinus. P waves with every QRS. CT angiogram already done and there is no PE. TSH is slightly on the low side and I interpret that as on the hyperthyroid side. (7) Macrocytosis: Impression: He states that his alcohol use is 2-3 vodka drinks at a time. But only about 2 or 3 times a week. TSH slightly suppressed and B12 super high, Folate nml. He will need fu wth this in the outpt setting to make sure such nefarious processes such as myelodysplasia is not brewing. (8) Lymphedema: Impression: Plan to follow up with lymphedema specialist in the outpatient setting. (9) Muscular deconditioning: Impression: Will need PT evaluation when more stable.
[2024-10-06] MEDS: ACETAMINOPHEN 1,000 MG/100 ML 1,000 MG/100 ML BAG IV PRN (14:03)
[2024-10-06] MEDS: methylPREDNISolone SUCCINATE 40 MG/ML VIAL IVP SCH (14:03)
--- NOTE | 2024-10-06 15:27 | XRAY Report ---
PROCEDURE: XR Chest 1V INDICATIONS: TAWNYA TECHNIQUE: One view of the chest was acquired. COMPARISON: 10/04/2024. FINDINGS: Surgical changes and devices: Endotracheal tube with tip likely projecting near the ford, the ford is not well seen. Enteric tube coursing below the diaphragm and out of the [id number]. Lungs and pleura: Diffuse increased interstitial markings are increased compared to prior. Mediastinum: Mediastinal contours appear normal. Heart size is enlarged. Bones and chest wall: No suspicious bony lesions. Overlying soft tissues appear unremarkable. IMPRESSION: 1.Endotracheal tube in place, the ford is not well seen however the tip appears to be projecting near the ford. 2.Diffuse increased interstitial markings are progressed compared to prior. Reviewed by: Akhil Gautam MD on 10/06/2024 3:25 PM PDT Approved by: Akhil Gautam MD on 10/06/2024 3:25 PM PDT Station ID: [id number]
[2024-10-07 04:45] LABS: HCT - HEMATOCRIT 36.1 % (42.0-52.0); HGB - HEMOGLOBIN 11.9 g/dL (14.0-18.0); MEAN PLATELET VOLUME 11.7 fL (7.4-11.4); PLT - PLATELET COUNT 232.0 10^3/uL (130-450); RED CELL DISTRIBUTION WIDTH 13.4 % (12.0-15.0)
[2024-10-07 04:49] LABS: VBG PH 7.454 (7.31-7.41)
[2024-10-07 05:08] LABS: BUN - BLOOD UREA NITROGEN 53.0 mg/dL (6-20); CARBON DIOXIDE - CO2 28.0 mmol/L (21-32); CREATININE 1.4 mg/dL (0.6-1.3); GFR - MDRD 49.0 (>89); PHOSPHORUS 4.3 mg/dL (2.5-5.0)
[2024-10-07 05:42] LABS: ABG BASE EXCESS 3.2 mmol/L (-2.0-3.0); ABG HCO3 27.1 mmol/L (22.0-26.0); ABG OXYGEN SATURATION 97 % (95-98); ABG PCO2 37 mmHg (34-45); ABG PH 7.47 (7.35-7.45); ABG PO2 90 mmHg (83-108); ABG TCO2 28.3 mmol/L (21.0-29.0)
[2024-10-07 05:43] LABS: ABG FRACTION OF INSPIRED O2 40.00; ABG MODE OF VENTILATION ASSIST/CONTROL
[2024-10-07] MEDS: POTASSIUM CHLOR 20 MEQ/100 ML 20 MEQ/100 ML BAG IV ONE (05:58)
--- NOTE | 2024-10-07 10:30 | XRAY Report ---
PROCEDURE: XR Chest 1V INDICATIONS: TAWNYA TECHNIQUE: One view of the chest was acquired. COMPARISON: 10/06/2024 FINDINGS AND IMPRESSION: ET tube terminates about 2 cm above the ford. A right central line is seen with tip at the cavoatrial junction. There is either a bend or small kink in the lower neck. Enteric tube is below the diaphragm, tip not well seen Low lung volumes. Moderate pleural effusions and pulmonary diffuse interstitial prominence, likely edema. Differential includes infection. Suspect cardiomegaly. Degenerative osseous changes. Reviewed by: Carson Caballero MD on 10/07/2024 10:29 AM PDT Approved by: Carson Caballero MD on 10/07/2024 10:29 AM PDT Station ID: [id number]
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
[2024-10-07 16:37] VITALS: TEMP 98.1
[2024-10-07 17:24] VITALS: BP 126/64; O2SAT 95
== END 2024-10-07 18:02 | disposition short-term general hospital (02) | DRG 602 ==
LOC: ED 10:51 → MS2 10:51 → ICU 10-02 20:20
PROVIDERS: ADMIT Specialist; ATTEND Specialist